=== PATIENT | female | born 1955 | race Caucasian/White ===

== ENCOUNTER 2025-05-28 06:08 | Emergency (ER) | payer MEDICARE, SELFPAY ==
[2025-05-28] VITALS (20 sets, daily range): BP systolic 130–158; BP diastolic 70–93; PULSE 67–86; RESP 14–20; TEMP 36.5; O2SAT 97–100
--- NOTE | ~2025-05-28 | CT_ITS ---
EXAMINATION: CT facial & cervical spine wo DATE: 05/28/2025 10:54 INDICATION: Fall. TECHNIQUE: Computed tomography (CT) of the maxillofacial region and cervical spine was performed without intravenous contrast. Automated exposure control and iterative reconstruction technique were employed. The dose-length product was 227.92 mGy-cm. COMPARISON: None FINDINGS: MAXILLOFACIAL CT: There is rightward deviation of the nasal septum. No fracture. There is mild mucosal thickening in the paranasal sinuses. The orbits are normal. The mastoid air cells are normal. CERVICAL SPINE CT: There is 5 degrees dextrocurvature of cervical spine. Vertebral body heights are normal. There is mildly decreased disc height at C4-C5 and C5-C6 and moderately decreased disc height at C6-C7. There is multilevel severe facet joint osteoarthritis. There is multilevel uncovertebral joint osteoarthritis, severe bilaterally at C6-C7. There is mild neural foraminal stenosis at multiple levels on either side. There is mild central canal stenosis at C4-C5, C5-C6, and C6-C7. IMPRESSION: 1. No fracture. 2. Moderate cervical spondylosis. Reviewed, dictated and finalized at location E.
--- NOTE | ~2025-05-28 | XR_ITS ---
EXAMINATION: XR pelvis 1-2V, 05/28/2025 10:58 CDT HISTORY: fall COMPARISON: No comparisons available. Findings: No acute fracture or malalignment. No significant degenerative changes. Soft tissues unremarkable. Impression: No acute fracture or malalignment. Reviewed, dictated and finalized at location P. Impression: No acute fracture or malalignment.
--- NOTE | ~2025-05-28 | XR_ITS ---
EXAMINATION: XR wrist LT min 3V, 05/28/2025 10:58 CDT HISTORY: injury COMPARISON: No comparisons available. Findings: Fixation of the distal radius, no acute fracture is identified. There is a remote corticated fracture of the ulnar styloid process. No significant degenerative changes. Soft tissues unremarkable. Impression: No acute fracture or malalignment. Reviewed, dictated and finalized at location P. Impression: No acute fracture or malalignment.
--- NOTE | ~2025-05-28 | CT_ITS ---
CT HEAD NON-CONTRAST Clinical History: fall Comparison: None Technique: Unenhanced axial images skull base to vertex Coronal, sagittal reformats CT images acquired with automatic exposure control for dose reduction DLP: 228 mGy-cm Findings: Frontal craniotomy. Heterogeneous rounded parenchyma beneath craniotomy site with faint mural calcification and more prominent focal dystrophic calcification. White matter changes, typically chronic microvascular ischemic disease. Sulci, ventricles: Unremarkable. No intracerebral hemorrhage. No evidence acute territorial infarct. No mass effect, midline shift. Bony calvarium intact. Visualized paranasal sinuses: Clear. Mastoid air cells: Clear. IMPRESSION: 1. No acute intracranial findings. 2. Focal distinct brain parenchyma beneath craniotomy site left frontal lobe. Presumably posttreatment changes of underlying mass. Residual viable malignancy cannot be excluded. Recommend comparison with prior exams if they exist. Otherwise consider MRI. Reviewed, dictated and finalized at location R. IMPRESSION: 1. No acute intracranial findings. 2. Focal distinct brain parenchyma beneath craniotomy site left frontal lobe. Presumably posttreatment changes of underlying mass. Residual viable malignancy cannot be excluded. Recommend comparison with prior exams if they exist. Other vasquez consider MRI.
--- NOTE | ~2025-05-28 | XR_ITS ---
EXAMINATION: XR chest 1V, 05/28/2025 10:58 CDT HISTORY: fall COMPARISON: No comparisons available. Technique: Single view. Findings: The lungs are clear, no effusion. No pneumothorax. Heart is normal size. Mediastinal and hilar contours are within normal limits. There are remote right-sided rib fractures Impression: No acute cardiopulmonary abnormality. Reviewed, dictated and finalized at location P. Impression: No acute cardiopulmonary abnormality.
--- NOTE | 2025-05-28 10:33 | ED.FALL ---
HPI - Fall General Chief Complaint: Fall Stated Complaint: fall Time Seen by Provider: 05/28/25 09:10 Source: patient Mode of arrival: EMS Limitations: other (history of aphasia) History of Present Illness HPI Narrative: This is a 70-year-old female that presents to the emergency department after a reported fall at her facility today. Bruising noted around the right orbit. Abrasions to the left wrist. Patient does not report any pain at this time. History is limited due to her history of aphasia. Related Data Allergies Allergy/AdvReac Type Severity Reaction Status Date / Time No Known Allergies Allergy Verified 05/28/25 06:16 Review of Systems Review of Systems: ROS unobtainable: Yes unobtainable due to medical condition PMFSH Past Medical History Medical History (Updated 05/28/25 @ 13:11 by Malathi Day PA-C) Glioblastoma Expressive aphasia Hypertension Brain mass Exam Narrative: GENERAL: Well-appearing, well-nourished, and in no acute distress. HEAD: Normocephalic. Bruising to the right side of the face EYES: PERRLA and EOMI. ENT: Nares clear, no rhinorrhea or epistaxis. Mucous membranes moist. Oropharynx without tonsillar hypertrophy exudate or other lesions. Bilateral TMs pearly jarvis non-bulging NECK: Supple. No adenopathy or masses. CHEST: Clear to auscultation. No respiratory distress. No wheezes rales or rhonchi HEART: Regular rate and rhythm. No murmur heard. Normal peripheral pulses. ABDOMEN: Soft, nontender, nondistended, normal active bowel sounds. EXTREMITIES: Normal range of motion. No edema or obvious deformity. SKIN: Warm, dry, no rash. NEURO: No focal deficits. Alert and oriented x3. CN II-XII grossly intact PSYCH: Normal mood and affect Course Course Emergency Course: patient's son was updated on imaging results. He reports some worsening confusion the last week. Will obtain blood work, UA Vital Signs Vital signs: Vital Signs Temperature 97.7 F 05/28/25 06:11 Pulse Rate 75 05/28/25 06:11 Respiratory Rate 20 05/28/25 06:11 Blood Pressure 143/78 H 05/28/25 06:11 Pulse Oximetry 97 05/28/25 06:11 Oxygen Delivery Room Air 05/28/25 06:11 Temperature 97.7 F 05/28/25 06:11 Pulse Rate 73 05/28/25 13:00 Respiratory Rate 18 05/28/25 13:00 Blood Pressure 142/73 H 05/28/25 13:00 Pulse Oximetry 97 05/28/25 13:00 Oxygen Delivery Room Air 05/28/25 06:11 MDM - Fall MDM Narrative Medical decision making narrative: Patient presents to the ER for a fall today at assisted living facility. Bruising noted to the right side of the face. No injuries reported by patient. CT brain shows postoperative findings. No acute intracranial findings. CT cervical spine and facial bones without acute post-traumatic findings. Chest and pelvic x-rays without acute findings. Abrasions noted to the left wrist. Left wrist x-ray without acute osseous abnormalities. CBC with mild leukocytosis 10.9. Metabolic panel with mild hyponatremia. Urine with evidence of infection. Patient given 1st dose of antibiotics in the ER. Will be continued on oral antibiotics. She is to follow up with primary provider. She was given warnings to return to the ER Differential Diagnosis Differential diagnosis: Likely concussion with loss of consciousness, concussion without loss of consciousness and other (facial bone fracture, cervical spine fracture, contusion, UTI, subdural hemorrhage) Medical Records Attestation: I reviewed the patient's medical records. Medical records narrative: Follows regularly with neurology-oncology at [facility] Lab Data Attestation: I reviewed the patient's lab results. 05/28/25 12:35 05/28/25 12:35 Labs: Lab Results 05/28/25 05/28/25 Range/Units 12:25 12:35 WBC 10.9 H (4.5-10.0) K/mm3 RBC 4.65 (4.2-5.4) M/mm3 Hgb 14.5 (12.0-15.0) g/dL Hct 44.1 (37.0-47.0) % MCV 94.8 (80-100) fl MCH 31.2 (26-34) pg MCHC 32.9 (32-36) g/dl RDW 13.8 (11.5-14.5) % Plt Count 252 (150-375) k/mm3 MPV 9.0 (7.4-10.4) fl Immature Gran % (Auto) 0.7 H (0-0.5) % Neut % (Auto) 77.8 H (45.5-73.1) % Lymph % (Auto) 12.0 L (18.3-44.2) % Tyler % (Auto) 7.9 (2.6-8.5) % Eos % (Auto) 1.3 (0-4.4) % Baso % (Auto) 0.3 (0.2-1.2) % Lymph # (Auto) 1.31 (0.9-3.2) K/mm3 Tyler # (Auto) 0.9 H (0.1-0.6) K/mm3 Eos # (Auto) 0.1 (0-0.3) K/mm3 Baso # (Auto) 0.0 (0.0-0.1) K/mm3 Abs Immat Gran (auto) 0.08 H (0.00-0.031) K/mm3 Absolute Neuts (auto) 8.5 H (1.3-6.7) K/mm3 Absolute Nucleated RBC 0.000 (0.0-0.012) K/mm3 Nucleated RBC % 0.0 (0.0-0.2) % Sodium 133 L (137-145) mmol/L Potassium 3.6 (3.4-5.0) mmol/L Chloride 101 (98-107) mmol/L Carbon Dioxide 29 (22-30) mmol/L Anion Gap 3 L (4-12) mmol/L BUN 13 (7-17) mg/dL Creatinine 0.63 L (0.7-1.0) mg/dL Estim Creat Clear Calc Not Reportable Estimated GFR > 60 (59 - ) Glucose 91 (65-110) mg/dL Calcium 8.3 L (8.4-10.2) mg/dL Total Bilirubin 0.6 (0.2-1.3) mg/dL AST 31 (14-36) U/L ALT 32 (6-35) U/L Alkaline Phosphatase 105 (38-126) U/L Total Protein 6.2 L (6.3-8.2) g/dL Albumin 3.4 L (3.5-5.1) g/dL Urine Color Yellow (Yellow) Urine Appearance Clear (Clear) Urine pH 7.0 (5.0-9.0) Ur Specific Baldwin 1.011 (1.001-1.035) Urine Protein Negative (Negative) mg/dL Urine Glucose (UA) Negative (Negative) mg/dL Urine Ketones Negative (Negative) mg/dL Ur Blood (Man) Negative (Negative) Urine Nitrate Negative (Negative) Urine Bilirubin Negative (Negative) Urine Urobilinogen 1.0 (<2.0) mg/dL Leukocyte Esterase Rfl 2+ H (Negative) BRITTANIE/UL Urine RBC 0-2 (0-2) /hpf Urine WBC 11-20 H (0-3) /hpf Ur Squamous Epith Cells Occasional (Few) /hpf Urine Bacteria 1+ H /hpf Urine Casts 0-2 Imaging Data Radiologist's impression: ITS Impressions Head/Cervical Spine/Facial Bones CT 05/28/25 10:56 IMPRESSION: 1. No fracture. 2. Moderate cervical spondylosis. Head CT 05/28/25 10:57 IMPRESSION: 1. No acute intracranial findings. 2. Focal distinct brain parenchyma beneath craniotomy site left frontal lobe. Presumably posttreatment changes of underlying mass. Residual viable malignancy cannot be excluded. Recommend comparison with prior exams if they exist. Otherwise consider MRI. Chest X-Ray 05/28/25 11:08 Impression: No acute cardiopulmonary abnormality. Pelvis X-Ray 05/28/25 11:09 Impression: No acute fracture or malalignment. Wrist X-Ray 05/28/25 11:09 Impression: No acute fracture or malalignment. Critical Care Time Critical Care Time Critical Care Time: No Discharge Plan Discharge Clinical Impression: Acute UTI Fall Qualifiers: Encounter type: initial encounter Qualified Code(s): W19.XXXA - Unspecified fall, initial encounter Head injury Qualifiers: Encounter type: initial encounter Qualified Code(s): S09.90XA - Unspecified injury of head, initial encounter Patient Disposition: [facility] Condition: Stable Instructions: Antibiotic Form, Head Injury (ED), Urinary Tract Infection in Older Adults (ED) Additional Instructions: Return to the emergency department if you experience fever, chest pain, shortness of breath, abdominal pain with nausea and vomiting, weakness, numbness, or any other symptoms that are concerning to you. Take oral antibiotic as prescribed Follow up with primary care doctor Patient Language: Andorran Prescriptions: New cephalexin 500 mg capsule 500 mg PO Q12H 5 Days Qty: 10 0RF Follow-up/Referrals: Faith,Jodi [Other] Stand Alone Forms: Snf Discharge
--- OUTSIDE RECORDS SUMMARY | 2025-05-28 10:47 | XMS_ITS ---
Author Organization [facility] Healthcare Address [address] [place] [address] Care Team Providers Care [employer] Principal Solution Specialist Name Role Phone Mylene Ervin Unavailable [phone] Kervin Gonsales MD Unavailable Lyle Renner MD Unavailable [phone] Ashley Sullivan MD Unavailable Kervin Gonsales MD Unavailable Beatrice Tesfaye FLASK FITTER Primary Care Provider [phone] Marvin Gonzales MD PhD Unavailable Active Problems Problem Noted Date Diagnosed Date Brain lesion 02/07/2025 Glioblastoma 01/11/2025 Cancer Staging:Clinical stage from 07/22/2017:WHO G4- Signed by Afua Hernández MD on 01/30/2025 Hypercalciuria 08/01/2024 Assessment & Plan (08/01/2024 4:12 PM BARBER OR BEAUTY SHOP MANAGER): See HPI for details, HCTZ was stopped by PCP due to constipation. But pt states this was a longstanding issue and there was no change on or off of it. She did not have any lightheadedness, low BP with it. Told her to restart HCTZ 12.5 mg, if needed for BP cut her amlodipine in 12 and let us know. Language difficulty 07/03/2024 Memory loss or impairment 07/03/2024 Seizure-like activity 06/04/2024 Other osteoporosis without current pathological fracture 09/14/2023 Assessment & Plan (08/01/2024 4:13 PM BARBER OR BEAUTY SHOP MANAGER): Chronic problem, generally stable. Prolia was too expensive. Continue Boniva. Restart calcium supplement. Reviewed fall risk reduction, she's in PT right now for balance/ strength training. Also discussed a walking aide if needed. Assessment & Plan (09/14/2023 10:54 AM BARBER OR BEAUTY SHOP MANAGER): Without clear secondary causes, but with strong genetic component. Will proceed some laboratory workup including 25 hydroxy vitamin-D, PTH, serum calcium and urine calcium The patient unfortunately has contraindication for anabolic therapy with PTH due to his history of radiation therapy exposure. I discussed different options of treatment, including bisphosphonates or oral or IV or also denosumab (Prolia), which would be my recommendation. The patient has agreed. I have sent a prescription for denosumab If approved, Boniva be discontinued continue with denosumab every 6 months . I explained to the patient that she starts denosumab , she needs to be compliant taking the medication regularly because of the increased risk of rebound fractures if the medication is stop abruptly Importance of weight-bearing exercise fall precautions also was discussed as well as calcium and vitamin-D intake. Expressive aphasia 02/21/2021 Urinary incontinence 05/27/2020 Recurrent UTI 05/27/2020 Microscopic hematuria 05/27/2020 Closed fracture of right distal radius 9 Overview (08/21/2018): Added automatically from request for surgery [id number] Closed fracture of left distal radius 08/21/2018 Overview (08/21/2018): Added automatically from request for surgery [id number] Sensorineural hearing loss (SNHL) of both ears 0 03/06/2018 Left frontal glioblastoma mu ltiforme, EGFR amplified, 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 12/21/2017 Drug-induced constipation 11/17/2017 Nonintractable episodic headache 11/17/2017 Encounter for chemotherapy management 08/24/2017 Tinnitus 08/19/2017 Skin neoplasm 05/18/2017 Hemangioma of skin 05/18/2017 Keratosis, senilis 05/18/2017 TIA (transient ischemic attack) Current Treatment and Therapy Plans [id number] ??? [facility] ??? Neuro - [id number] ??? Arm A ??? 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) Treatment Medications Current Day (Day 1 , Cycle 3 - Planned for 05/16/2025) Next Day (Day 15, Cycle 3 - Planned for 05/30/2025) bevacizumab-awwb (MVASI)bevacizumab-awwb (MVASI) IVPBINV-WUSM_BJH (/[id number]) retifanlimab ([id number]) IVPB in 100 mLINV-WUSM_BJ sodium chloride 0.9 % bevacizumab-awwb (MVASI) 575 mg in sodium chloride 0.9% 100 mL IVPBINV-WUSM_BJH retifanlimab ([id number]) (/[id number]) 500 mg in sodium chloride 0.9% 100 mL IVPBINV-WUSM_BJ sodium chloride 0.9 % flush IVPB 20 mL bevacizumab-awwb (MVASI) 575 mg in sodium chloride 0.9% 100 mL IVPB IV MAINTENANCE THERAPY PLAN* Plan Start Date:02/09/2018 Plan Provider:Kervin Gonsales MD Linked Problems 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 IV Maintenance Therapy Plan* Plan Start Date:04/04/2025 Plan Provider:Kervin Gonsales MD Linked Problems Glioblastoma (HCC) Treatment Medications No medications scheduled. Past Treatment and Therapy Plans Oncology Chemotherapy Treatment Plan Name Start Date Discontinue Date Treatment Medications Discontinue Reason Plan Provider Cycles [id number] - [facility] - Brain - [id number] - Nivolumab / Placebo + RT followed by Nivolumab / Placebo Maintenance 8 09/04/2020 [facility] (/ [id number]) nivolumab IVPB in 100 mL Therapy Complete Kervin Gonsales MD 42 of 44 cycles started Oncology Treatment (2) Plan Name Start Date Discontinue Date Treatment Medications Discontinue Reason Plan Provider Cycles [id number] - [facility] Brain - [id number] - Temozolomide + RT followed by Temozolomide Maintenance 8 06/08/2018 [facility] temozolomide (/C [id number]) Patient Preference Kervin Gonsales MD 7 of 11 cycles completed Current Radiation Episodes * Radiation Oncology - Radiation Therapy - December 2024Overview* First Treatment Date Latest Treatment Date Treatment Site Technique Goal Episode Provider 08/25/2017 04/03/2025 Treatment Courses* Course C2_Brain_202403/21/2025 - 04/03/2025 Treatment Period Fraction Dose Fractions Total Dose Plans Planned LT_BRAIN 03/21/2025 - 04/03/2025 350 10 / 3 ,500 Reference Points Delivered [id number] 03/21/2025 - 04/03/2025 3,500 * Course C1_BRAIN_201608/25/2017 - 03/12/2025 Treatment Period Fraction Dose Fractions Total Dose Plans Planned BRAIN 03/12/2025 - 03/12/2025 200 23 / 4 ,600 BRAIN BST 03/12/2025 - 03/12/2025 200 7 / 1 ,400 Reference Points Delivered PTV1 4600 03/12/2025 - 03/12/2025 4,600 PTV2 1400 03/12/2025 - 03/12/2025 1,400 Radiation Treatments (No Episode) * Course C1_BRAIN_201608/26/2017 - 10/05/2017 Treatment Period Energy Fraction Dose Fractions Total Dose Plans Planned BRAIN BST 09/27/2017 - 10/05/2017 200 7 / 1,400 BRAIN 08/26/2017 - 09/26/2017 200 23 / 4,600 Reference Points Delivered PTV2 1400 09/27/2017 - 10/05/2017 1,400 PTV1 4600 08/26/2017 - 09/26/2017 4,600 Lifetime Dose Tracking * Chemical Lifetime Dose Automatic Entry Manual Entr y Fluoro Time 3.4 minutes 3.4 minutes 0 minutes Air kerma at the reference point (Ka,r) 26.1 mGy 2 6.1 mGy 0 mGy DLP 2,622 mGycm 2,622 mGycm 0 mGycm
--- OUTSIDE RECORDS SUMMARY | 2025-05-28 10:47 | XMS_ITS | Clinical Summary ---
Author Organization [facility] Healthcare Address [address] [place] [address] Care Team Providers Care Engineering Analyst Name Role Phone Mylene Ervin Unavailable [phone] Kervin Gonsales MD Unavailable Lyle Renner MD Unavailable [phone] Ashley Sullivan MD Unavailable Kervin Gonsales MD Unavailable Beatrice Tesfaye NP Primary Care Provider [phone] Marvin Gonzales MD PhD Unavailable Allergies Active Allergy Reactions Criticality Noted Date Comments Amoxicillin Nausea only Low 03/07/2025 Codeine Hallucinations Medium Erythromycin Nausea only Low 02/21/2021 Hydrocodone Vomiting Low Latex Cough Low Medications valACYclovir (VALTREX) 500 mg tablet Take 1 tablet (500 mg total) by mouth every morning Active ascorbic acid (VITAMIN C) 1,000 mg tablet Take 1 tablet (1,000 mg total) by mouth every morning Active fluticasone (FLONASE) 50 mcg/actuation nasal spray Administer 1 spray into each nostril as needed for rhinitis or allergies Active amLODIPine (NORVASC) 5 mg tablet Take 1 tablet (5 mg total) by mouth every morning 0 Active magnesium oxide (MAG-OX) 500 mg (301.6 mg elemental) tablet Take by mouth daily 2 Active zinc gluconate 50 mg tablet Take 1 tablet (50 mg total) by mouth every morning 2 Active ibandronate (BONIVA) 150 mg tablet Take 1 tablet (150 mg total) by mouth every 30 (thirty) days Take in AM with glass of water prior to food, don't lie down for 30 minutes. 3 tablet 1 4 Active ciclopirox (LOPROX) 0.77 % suspension Apply topically nightly Active vitamin D3-vitamin K2 25 mcg (1,000 unit)-90 mcg tablet,disinteg rating Take by mouth every morning Active acetaminophen 500 mg capsuleIndicati ons:Pain Take 2 capsules (1,000 mg total) by mouth every 6 (six) hours as needed for pain . Do not exceed 4 grams daily. 5 Active docusate sodium (COLACE) 100 mg capsuleIndicati ons:constipatio n,Stool Softener Take 1 capsule (100 mg total) by mouth 2 (two) times a day 5 Active famotidine (PEPCID) 20 mg tabletIndicatio ns:mucositis prophylaxis Take 1 tablet (20 mg total) by mouth 2 (two) times a day for 7 days 5 Active heparin 5,000 unit/mL injectionIndica tions:VTE Prophylaxis Inject 1 mL (5,000 Units total) under the skin every 12 (twelve) hours . Heparin can be discontinued once the patient is ambulating well. 5 Active oxyCODONE (ROXICODONE) 5 mg immediate release tabletIndicatio ns:Pain Take 1 tablet (5 mg total) by mouth every 4 (four) hours as needed for pain 5 Active polyethylene glycol (MIRALAX) 17 gram packetIndicatio ns:constipation Take 1 packet (17 g total) by mouth daily as needed for constipation 5 Active senna (SENOKOT) 8.6 mg tabletIndicatio ns:constipation Take 1 tablet by mouth 2 (two) times a day 5 026 Active zonisamide (ZONEGRAN) 50 mg capsuleIndicati ons:Primary malignant neoplasm of frontal lobe (HCC) Take 1 capsule (50 mg total) by mouth 2 (two) times a day after breakfast and dinner 180 capsule 3 5 Active dexAMETHasone (DECADRON) 4 mg tabletIndicatio ns:Cerebral Edema Take 2 tablets (8 mg total) by mouth daily with breakfast for 1 day, THEN 1 tablet (4 mg total) 2 (two) times a day with breakfast and lunch for 27 days. 56 tablet 5 025 ciprofloxacin (CIPRO) 500 mg tabletIndicatio ns:Urinary Tract/Genitouri nary Infection Take 1 tablet (500 mg total) by mouth 2 (two) times a day for 7 days 14 tablet 5 025 Active Problems Problem Noted Date Diagnosed Date Brain lesion 02/07/2025 Glioblastoma 01/11/2025 Cancer Staging:Clinical stage from 07/22/2017:WHO G4- Signed by Afua Hernández MD on 01/30/2025 Hypercalciuria 08/01/2024 Assessment & Plan (08/01/2024 4:12 PM STATISTICIAN THEORETICAL): See HPI for details, HCTZ was stopped by PCP due to constipation. But pt states this was a longstanding issue and there was no change on or off of it. She did not have any lightheadedness, low BP with it. Told her to restart HCTZ 12.5 mg, if needed for BP cut her amlodipine in 08/16 and let us know. Language difficulty 07/03/2024 Memory loss or impairment 07/03/2024 Seizure-like activity 06/04/2024 Other osteoporosis without current pathological fracture 09/14/2023 Assessment & Plan (08/01/2024 4:13 PM STATISTICIAN THEORETICAL): Chronic problem, generally stable. Prolia was too expensive. Continue Boniva. Restart calcium supplement. Reviewed fall risk reduction, she's in PT right now for balance/ strength training. Also discussed a walking aide if needed. Assessment & Plan (09/14/2023 10:54 AM STATISTICIAN THEORETICAL): Without clear secondary causes, but with strong [...] (08/21/2018): Added automatically from request for surgery [id number] Closed fracture of left distal radius 08/21/2018 Overview (08/21/2018): Added automatically from request for surgery [id number] Sensorineural hearing loss (SNHL) of both ears 0 03/06/2018 Left frontal glioblastoma mu ltiforme, EGFR amplified, 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 12/21/2017 Drug-induced constipation 11/17/2017 Nonintractable episodic headache 11/17/2017 Encounter for chemotherapy management 08/24/2017 Tinnitus 08/19/2017 Skin neoplasm 05/18/2017 Hemangioma of skin 05/18/2017 Keratosis, senilis 05/18/2017 TIA (transient ischemic attack) Encounters Date Type Department Care Team Description 05/24/2025 Documentation [facility] Neuroscience Nurse Navigation [address] [place] [address] Mayuri Rose, ORESTES End Of Episode (Conclude [facility] Nurse Navigation services); No Call Made 05/20/2025 Orders Only [facility] Medicine Oncology [address] [facility] Floor 5 [place] [address] Jameson Pierre, ORESTES Primary malignant neoplasm of frontal lobe (HCC) (Primary Dx) 05/17/2025 Orders Only [facility] Oncology [address] [facility] Floor 1, [address] [place] [address] Betsy Diego RN 05/14/2025 Telephone [facility] Bone Health [facility] 13th [place] [address] [place] [address] Santosh Paul MD 05/02/2025 2:45 PM CDT Lab [facility] - Lab Collection [address] [facility] Floor 5 [place] [address] Left frontal glioblastoma multiforme, EGFR amplified, 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 05/02/2025 1:20 PM CDT Office Visit [facility] Oncology [address] [place] [address] Floor 1, [address] [place] [id number] Kervin Gonsales MD Left frontal glioblastoma multiforme, EGFR amplified, 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 (Primary Dx); Dysuria; Primary malignant neoplasm of frontal lobe (HCC) 05/02/2025 Orders Only [facility] Oncology [facility] Floor 1, [address] [place] [address] Betsy Diego RN 04/30/2025 4:00 PM CDT Telemedicine [facility] Neurosurgery [facility] Floor 1, [address] [place] [phone] Fabricio Alvarez MD Glioblastoma (HCC) (Primary Dx) 04/30/2025 2:00 PM CDT Telemedicine [facility] Radiation Oncology [address] [place] [address] [place] [address] Tresa Clark NP Left frontal glioblastoma multiforme, EGFR amplified, 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 (Primary Dx) 04/29/2025 4:17 PM CDT - 04/29/2025 11:59 PM CDT Hospital Encounter [facility] - MRI [address] [facility] [address] [place] [address] Primary malignant neoplasm of frontal lobe (HCC) Discharge Disposition: Discharge to home or self care 04/18/2025 2:00 PM CDT Infusion [facility] - Infusion [address] 6 [place] [address] Glioblastoma (HCC) (Primary Dx); Left frontal glioblastoma multiforme, EGFR amplified, 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; Primary malignant neoplasm of frontal lobe (HCC) 04/18/2025 1:00 PM CDT Lab [facility] - Lab Collection [address] [facility] [address] [place] [address] Left frontal glioblastoma multiforme, EGFR amplified, 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; Glioblastoma (HCC) 04/08/2025 Results Follow-Up [facility] [place] [address] [place] [address] [address] [place] [phone] Rachael Esquivel, EDSON Urine culture Urine, clean voided 04/06/2025 5:30 PM CDT - 04/06/2025 11:59 PM CDT Hospital [facility] [address] [place] [address] Urinary frequency Discharge Disposition: Discharge to home or self care 04/06/2025 2:15 PM CDT Office Visit [facility] [address] [place] [address] [address] [place] [phone] Bri Randle, EDSON Urinary frequency (Primary Dx) 04/06/2025 Telephone [facility] Medicine Oncology [address] [place] [phone] Criss Dubois RN 04/04/2025 3:30 PM CDT Infusion [facility] - Infusion [address] [facility] [address] 6 [place] [address] Glioblastoma (HCC) (Primary Dx); Left frontal glioblastoma multiforme, EGFR amplified, 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; Primary malignant neoplasm of frontal lobe (HCC) 04/04/2025 2:20 PM CDT Office Visit [facility] Medicine Oncology [address] [place] [address] Floor 1, [address] [place] [address] Kervin Gonsales MD Left frontal glioblastoma multiforme, EGFR amplified, 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 (Primary Dx) 04/04/2025 1:15 PM CDT Lab [facility] Medicine Oncology Lab [address] [facility] Floor 5 [place] [address] Left frontal glioblastoma multiforme, EGFR amplified, 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 04/04/2025 12:45 PM CDT Lab [facility] - Lab Collection [address] [facility] Floor 5 [place] [address] Left frontal glioblastoma multiforme, EGFR amplified, 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 04/03/2025 12:12 PM CDT - 04/03/2025 11:59 PM CDT Hospital Encounter [facility] [address] [place] [phone] Marvin Gonzales MD PhD Glioblastoma (HCC) Discharge Disposition: Discharge to home or self care 04/03/2025 11:40 AM CDT - 04/03/2025 11:59 PM CDT Hospital Encounter [facility] Radiation Oncology [address] [place] [address] [place] [address] Marvin Gonzales MD PhD Discharge Disposition: Discharge to home or self care 04/03/2025 Completion of Therapy [facility] Radiation Oncology [facility] [place] [phone] Tresa Clark NP Left frontal glioblastoma multiforme, EGFR amplified, 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 (Primary Dx) 04/03/2025 Orders Only RAD ONC TREATMENTS Miscellaneous, Not In File 04/02/2025 11:16 AM CDT - 04/02/2025 11:59 PM CDT Hospital Encounter [facility] Radiation Oncology [address] [place] [address] Marvin Gonzales MD PhD Discharge Disposition: Discharge to home or self care 04/02/2025 Telephone [facility] Radiation Oncology [address] [place] [address], [place] [address] Betsy Rodriguez, RN 04/02/2025 Orders Only [facility] Radiation Oncology [address] [place] [address] Marvin Gonzales MD PhD Glioblastoma (HCC) (Primary Dx) 04/02/2025 OTV [facility] Radiation Oncology [address] [place] [address] Marvin Gonzales MD PhD 04/02/2025 Orders Only RAD ONC TREATMENTS Miscellaneous, Not In File 04/01/2025 2:29 PM CDT - 04/01/2025 11:59 PM CDT Hospital Encounter [facility] Radiation Oncology [address] [place] [address] Marvin Gonzales MD PhD Discharge Disposition: Discharge to home or self care 04/01/2025 Orders Only RAD ONC TREATMENTS Miscellaneous, Not In File 03/29/2025 1:58 PM CDT - 03/29/2025 11:59 PM CDT Hospital Encounter [facility] Radiation Oncology [address] [place] [address] Marvin Gonzales MD PhD Discharge Disposition: Discharge to home or self care 03/29/2025 Orders Only RAD ONC TREATMENTS Miscellaneous, Not In File 03/28/2025 9:08 AM CDT - 03/28/2025 11:59 PM CDT Hospital Encounter [facility] Radiation Oncology [address] [place] [address] Marvin Gonzales MD PhD Discharge Disposition: Discharge to home or self care 03/28/2025 Orders Only RAD ONC TREATMENTS Miscellaneous, Not In File 03/27/2025 1:49 PM CDT - 03/27/2025 11:59 PM CDT Hospital Encounter [facility] Radiation Oncology [address] [place] [address] [place] [address] Marvin Gonzales MD PhD Discharge Disposition: Discharge to home or self care 03/27/2025 Orders Only RAD ONC TREATMENTS Miscellaneous, Not In File 03/26/2025 8:45 AM CDT Treatment [facility] Radiation Oncology [address] [place] [phone] 03/26/2025 Orders Only RAD ONC TREATMENTS Miscellaneous, Not In File 03/25/2025 11:15 AM CDT Treatment [facility] Radiation Oncology [address] [place] [phone] 03/25/2025 OTV [facility] Radiation Oncology [address] [place] [phone] Marvin Gonzales MD PhD Left frontal glioblastoma multiforme, EGFR amplified, 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 (Primary Dx) 03/25/2025 Orders Only [facility] Radiation Oncology [address] [place] [phone] Marvin Gonzales MD PhD 03/25/2025 Orders Only RAD ONC TREATMENTS Miscellaneous, Not In File 03/22/2025 9:45 AM CDT Treatment [facility] Radiation Oncology [address] [place] [phone] 03/22/2025 Orders Only RAD ONC TREATMENTS Miscellaneous, Not In File 03/21/2025 1:45 PM CDT Treatment [facility] Radiation Oncology [address] [place] [phone] Marvin Gonzales MD PhD 03/21/2025 8:00 AM CDT Infusion [facility] - Infusion [address] [facility] Floor 5 [place] [address] Left frontal glioblastoma multiforme, EGFR amplified, 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 (Primary Dx); Primary malignant neoplasm of frontal lobe (HCC) 03/21/2025 7:15 AM CDT Clinical Support [facility] - Lab Collection [address] [place] [address] Left frontal glioblastoma multiforme, EGFR amplified, 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 03/21/2025 Orders Only RAD ONC TREATMENTS Miscellaneous, Not In File 03/21/2025 Telephone [facility] Radiation Oncology [address] [place] [address] Rachael Osei RN 03/15/2025 Orders Only [facility] Medicine Oncology [address] [facility] Floor 1, [address] [place] [address] Kervin Gonsales MD 03/12/2025 2:00 PM CDT Office Visit [facility] Neurosurgery [address] [facility] Floor 1, [address] [place] [phone] Fabricio Alvarez MD Glioblastoma (HCC) (Primary Dx) 03/12/2025 Orders Only RAD ONC TREATMENTS Miscellaneous, Not In File 03/11/2025 3:30 PM CDT Treatment [facility] Radiation Oncology [address] [place] [address] 03/07/2025 4:00 PM CDT Infusion [facility] - Infusion [address] [place] [address] Left frontal glioblastoma multiforme, EGFR amplified, 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 (Primary Dx); Primary malignant neoplasm of frontal lobe (HCC) 03/07/2025 2:40 PM CDT Office Visit [facility] Oncology [facility] [facility] Floor 1, [address] [place] [phone] Kervin Gonsales MD Left frontal glioblastoma multiforme, EGFR amplified, 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 (Primary Dx); Primary malignant neoplasm of frontal lobe (HCC) 03/07/2025 1:30 PM CDT Lab [facility] - Lab Collection [address] [place] [address] Left frontal glioblastoma multiforme, EGFR amplified, 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 03/07/2025 Orders Only [facility] Medicine Oncology [address] [facility] Floor 1, [address] [place] [address] Betsy Diego, ORESTES 03/07/2025 Orders Only [facility] Oncology [facility] Floor 1, [address] [place] [address] Betsy Diego RN 03/07/2025 [facility] [address] [facility] Floor 1, [address] [place] [address] Betsy Diego RN 03/07/2025 [facility] [address] [place] [address] Floor 1, [address] [place] [phone] Kervin Gonsales MD 03/04/2025 1:41 PM CDT - 03/04/2025 11:59 PM CDT Hospital Encounter [facility] Radiation Oncology [address] [place] [address] [place] [address] Marvin Gonzales MD PhD Discharge Disposition: Discharge to home or self care 03/04/2025 12:43 PM CDT - 03/04/2025 11:59 PM CDT Hospital Encounter [facility] Radiation Oncology [address] [place] [address] Marvin Gonzales MD PhD Discharge Disposition: Discharge to home or self care 03/01/2025 [facility] [address] [place] [address] Floor 1, [address] [place] [phone] Betsy Diego, ORESTES 02/28/2025 12:45 PM CDT Lab [facility] - Lab Collection [address] [place] [address] Floor 5 [place] [address] Glioblastoma (HCC) 02/28/2025 12:30 PM CDT Lab [facility] Medicine Oncology Lab [address] [place] [address] Floor 5 [place] [address] Glioblastoma (HCC) 02/28/2025 10:00 AM CDT Office Visit [facility] Medicine Oncology [facility] Floor 1, [address] [place] [address] Noé Sarmiento MD PhD Left frontal glioblastoma multiforme, EGFR amplified, 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 (Primary Dx) 02/28/2025 Orders Only [facility] Medicine Oncology [address] [facility] [address] 1, [address] [place] [address] Romeo Sanchez, SAM Glioblastoma (HCC) (Primary Dx) 02/28/2025 Telephone [facility] Radiation Oncology [address] [facility] [place] [address] Betsy Rodriguez RN 02/25/2025 5:35 AM CDT - 02/25/2025 11:59 PM CDT Hospital Encounter [facility] Radiation Oncology [address] [place] [address] Discharge Disposition: Discharge to home or self care from Last 3 Months Immunizations Immunization Administration Dates Next Due Influenza Virus Vaccine Trivalent Mdv 08/13/2024 Influenza, Quadrivalent, Cira l Culture-based MDCK, Preservative Free, Antibiotic Free, Intramuscular 05/26/2023,05/27/2022 Influenza, Quadrivalent, Split, Intramuscular ,06/19/2016 Influenza, Trivalent, Preservative Free, Intramu scular 04/15/2017 Influenza, Unspecified 09/27/2023,05/15/2017 Moderna SARS-CoV-2 Monovalent Vaccination (12+ Y RS) 11/21/2020,10/24/2020 Pneumococcal Conjugate Pcv20 04/05/2022 Tdap 04/02/2014,08/15/2002 Tetanus Toxoid, Unspecified 02/12/2015 ZOSTER Recombinant 12/11/2022,08/26/2022 Surgical History Surgery Date Site/Laterality Comments TUBAL LIGATION Bilateral tubal ligation TONSILLECTOMY Tonsillectomy CYST REMOVAL Uterine cyst CRANIOTOMY FOR TUMOR 07/15/2017 - 08/14/2017 Glioblastoma Medical History Medical History Date Comments Personal history of other sp ecified conditions History of headache - (Added by TW Conv) HL (hearing loss) Tinnitus H/O seasonal allergies Cancer (HCC) Acid reflux disease Motion sickness Brain tumor 07/2017 Left frontal gli oblastoma Hypertension Glioblastoma (HCC) Herpes genitalis in women History of chemotherapy History of radiation therapy Left frontal glioblastoma mu ltiforme, EGFR amplified, 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 12/21/2017 Family History Medical History Relation Name Comments Alzheimer's disease Father Dementia Father Heart disease Father Breast cancer Half-Sister Deafness Mother Dementia Mother Heart disease Mother Heart attack Other Family history of Myocardial infarction; Relation Name Status Comments Father Half-Sister Alive Mother Alive Other Sister Alive Social History Tobacco Use Types Packs/Day Years Used Date Smoking Tobacco: Former Cigarettes Q uit: 08/21/2013 Passive Smoke Exposure: Past Smokeless Tobacco: Never Tobacco Cessation:Counseling Given: Not Answered Alcohol Use Standard Drinks/Week Comments Not Currently 0 (1 standard drink = 0.6 oz pur e alcohol) [facility] [employer] Answer Date Recorded In the past 12 months has e electric, gas, oil, or water company threatened to shut off services in your home? No 05/08/2024 Social Connection and Isolation Panel Answer Date Recorded In a typical week, how many times do you talk on the phone with family, friends, or neighbors? More than three times a week 05/08/2024 How often do you get togethe r with friends or relatives? Never 05/08/2024 How often do you attend chur ch or roman catholic services? More than 4 times per year 05/08/2024 Do you belong to any clubs o r organizations such as episcopal groups, unions, fraternal or athletic groups, or school groups? Yes 05/08/2024 How often do you attend meet ings of the clubs or organizations you belong to? More than 4 times per year 05/08/2024 Are you , , di vorced, , never , or living with a partner? Patient declined 05/08/2024 AUDIT-C Answer Date Recorded Q1: How often do you have a drink containing alcohol? Never 02/07/2025 Q2: How many drinks containi ng alcohol do you have on a typical day when you are drinking? Patient does not drink Q3: How often do you have si x or more drinks on one occasion? Never 02/07/2025 Overall Financial Resource Strain (CARDIA) Answe r Date Recorded How hard is it for you to pa y for the very basics like food, housing, medical care, and heating? Not very hard 05/08/2024 PHQ-2 Answer Date Recorded PHQ-2 Total Score (If total score is 3 or more points, staff should administer the PHQ-9) 0 02/07/2025 Hunger Vital Sign Answer Date Recorded Within the past 12 months, y ou worried that your food would run out before you got the money to buy more. Never true 05/08/20 24 Within the past 12 months, t he food you bought just didn't last and you didn't have money to get more. Never true 05/08/2024 PRAPARE - Transportation Answer Date Re corded In the past 12 months, has l ack of transportation kept you from medical appointments or from getting medications? No 04/16 In the past 12 months, has l ack of transportation kept you from meetings, work, or from getting things needed for daily living? No 05/08/2024 Housing Stability Vital Sign Answer Marino e Recorded In the last 12 months, was t here a time when you were not able to pay the mortgage or rent on time? No 05/08/2024 In the past 12 months, how m any times have you moved where you were living? 0 05/08/2024 At any time in the past 12 m [facility], were you homeless or living in a halfway (including now)? No 05/08/2024 Personal Safety Answer Date Recorded Have you ever been in or are you currently in a harmful physical or emotional relationship or is someone making you feel afraid or unsafe? Denies 02/07/2025 Comments No Sex and Gender Information Value Date Recorded Sex Assigned at Not on file Legal Sex Female 7:36 PM STATISTICIAN THEORETICAL Gender Identity Not on file Sexual Orientation Straight 07/01/2020 9: 31 AM STATISTICIAN THEORETICAL Obstetrics History Para Term AB IAB SAB Ectopic Multiple Livin g Live Births 3 3 3 Date Outcome GA Total Labor Labor/2nd/3rd Weight Sex Type Anes PTL Mary A1 A5 Name Clin Term Term Term Last Filed Vital Signs Vital Sign Reading Time Taken Comments Blood Pressure 145/85 05/02/2025 1:26 PM CDT Pulse 89 05/02/2025 1:26 PM CDT Temperature 37 C (98.6 F) 05/02/2025 1:26 PM CDT Respiratory Rate 17 05/02/2025 1:26 PM CDT Oxygen Saturation 96% 05/02/2025 1:26 PM CDT Inhaled Oxygen Concentration - - Weight 57.2 kg (126 lb) 05/02/2025 1:26 PM CDT Height 154.9 cm (5' 1) 05/02/2025 1:26 PM CDT Body Mass Index 23.81 05/02/2025 1:26 PM CDT Plan of Treatment Health Maintenance Due Date Last Done Comments Colon Cancer Screening-Colonoscopy 1955 Hepatitis B Screening 1973 Well Visit 65+ 2020 Covid-19 Vaccine (3 - Modern a risk series) 12/19/2020 11/21/2020, 10/24/2020 DTaP/Tdap/Td Vaccine (3 - Td or Tdap) 04/02/2024 04/02/2014, 08/15/2002 Osteoporosis Screening-Bone Density Scan 12/13/2024 12/13/2022, 10/31/2020 Breast Cancer Screening-Mammogram 01/11/2025 01/12/2024, 10/07/2022, 10/05/2021, Additional history exists Influenza Vaccine (#1) 2025 , 09/27/2023, 05/26/2023, Additional history exists Depression Screening 01/31/2026 01/31/2025, 08/01/20 24 Fall Risk Assessment 02/15/2026 02/15/2025, 01/29/2025, 08/01/2024 Hepatitis C Screening Completed 08/19/2017 Pneumococcal vaccine 65+ Completed 04/05/2022 Zoster Vaccine Completed 12/11/2022, 08/26/2022 Medical Devices Implanted Type Area Synthetic Filament Extruder Device Identifier Shelf Expiration Date Model / Serial / Lot [employer] A-5700.20 2.5mm 20mm Cortical Screw Bone - S0 - [id number] Implanted:Qty: 1 on 08/23/2018 by Teddy Shelton MD at [facility] Screw Left: Radius [employer] A-5700.20 / 0 / 0 [employer] A-5750.14/1 Aptus 2.5mm 14mm Lock Radius Screw Bone Karen - S0 - [id number] Implanted:Qty: 1 on 08/23/2018 by Teddy Shelton MD at [facility] Screw Left: Radius [employer] A-5750.14/ 1 / 0 / 0 [employer] A-5700.16/1 Aptus 2.5mm 16mm Hexadrive 7 Adaptive Wrist Radius Cortical - S0 - [id number] Implanted:Qty: 1 on 08/23/2018 by Teddy Shelton MD at [facility] Screw Left: Radius [employer] A-5700.16/ 1 / 0 / 0 [employer] A-4750.62 Aptus Trilock [id number] Hole Right Distal Radius Volar Plate - [id number] Implanted:Qty: 1 on 08/23/2018 by Teddy Shelton MD at [facility] Right: Radius [employer] A-4750.62 / / [employer] A-5750.16 2.5mm 16mm Lock Cortical Screw Bone - [id number] Implanted:Qty: 1 on 08/23/2018 by Teddy Shelton MD at [facility] Left: Radius [employer] A-5750.16 / / [employer] A-5750.18 2.5mm 18mm Lock Cortical Screw Bone - [id number] Implanted:Qty: 1 on 08/23/2018 by Teddy Shelton MD at [facility] Left: Radius [employer] A-5750.18 / / Screw 4.5x12mm Rescue Variable - [id number] - [id number] Implanted:Qty: 1 on 08/23/2018 by Teddy Shelton MD at [facility] Left: Radius Teranode [id number] / [id number] / [employer] A-5700.12 Aptus 2.5mm 12mm Cortical Screw Bone - [id number] Implanted:Qty: 1 on 08/23/2018 by Teddy Shelton MD at [facility] Left: Radius [employer] A-5700.12 / / Screw 10mm 2.7mm Nlkg X Drv Bone Mag - [id number] Implanted:Qty: 1 on 08/23/2018 by Teddy Shelton MD at [facility] Left: Radius [employer] [id number] / / [employer] A-4750.55 Aptus Trilock 42mmx1.6mm 6 Hole Distal Radius L Left Angle Plate - [id number] Implanted:Qty: 1 on 08/23/2018 by Teddy Shelton MD at [facility] Left: Radius [employer] A-4750.55 / / [employer] A-5750.12/1 Aptus Trilock 2.5mm 12mm Hexadrive 7 Adaptive Wrist Radius - S0 - [id number] Implanted:Qty: 1 on 08/23/2018 by Teddy Shelton MD at [facility] Left: Radius [employer] A-5750.12/ 1 / 0 / 0 [employer] A-5750.16 2.5mm 16mm Lock Cortical Screw Bone - [id number] Implanted:Qty: 1 on 08/23/2018 by Tedyd Shelton MD at [facility] Right: Radius [employer] A-5750.16 / / [employer] A-5750.18 2.5mm 18mm Lock Cortical Screw Bone - [id number] Implanted:Qty: 2 on 08/23/2018 by Teddy Shelton MD at [facility] Right: Radius [employer] A-5750.18 / / Screw Implanted:Qty: 2 on 08/23/2018 by Teddy Shelton MD at [facility] Right: Radius [employer] / [id number] / [employer] A-5700.12 Aptus 2.5mm 12mm Cortical Screw Bone - [id number] Implanted:Qty: 2 on 08/23/2018 by Teddy Shelton MD at [facility] Right: Radius [employer] A-5700.12 / / [employer] A-5700.14 Aptus 2.5mm 14mm Cortical Screw Bone - [id number] Implanted:Qty: 1 on 08/23/2018 by Teddy Shelton MD at [facility] Right: Radius [employer] A-5700.14 / / [employer] A-4750.37 - [id number] Implanted:Qty: 1 on 08/23/2018 by Teddy Shelton MD at [facility] Left: Radius [employer] A-4750.37 / / [employer] A-5700.14 Aptus 2.5mm 14mm Cortical Screw Bone - [id number] Implanted:Qty: 1 on 08/23/2018 by Teddy Shelton MD at [facility] Left: Radius [employer] A-5700.14 / / Screws Implanted:Qty: 1 on 08/23/2018 by Teddy Shelton MD at [facility] Left: Radius [employer] / [id number] / Procedures Procedure Name Priority Date/Time Associated Diagnosis Comments URINALYSIS, MICROSCOPIC ONLY STAT 05/02/2025 2:55 PM CDT Left frontal glioblastoma multiforme, EGFR amplified, 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 URINALYSIS AND REFLEX TO MICROSCOPIC AND CULTURE STAT 05/02/2025 2:55 PM CDT Left frontal glioblastoma multiforme, EGFR amplified, 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 MRI BRAIN W WO CONTRAST Schedule Routine, Read Routine (OP Routine) 04/29/2025 5:38 PM CDT Primary malignant neoplasm of frontal lobe (HCC) URINALYSIS AND REFLEX TO MICROSCOPIC AND CULTURE STAT 04/18/2025 2:34 PM CDT Left frontal glioblastoma multiforme, EGFR amplified, 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 DIFFERENTIAL AUTO STAT 04/18/2025 1:4 3 PM CDT Left frontal glioblastoma multiforme, EGFR amplified, 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 CBC WITH AUTO DIFFERENTIAL STAT 04/18/2025 1:43 PM CDT Left frontal glioblastoma multiforme, EGFR amplified, 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 TYPE AND SCREEN Routine 04/18/2025 1:43 PM CDT Glioblastoma (HCC) URINE CULTURE Routine 04/06/2025 5:30 PM CDT Urinary frequency POCT URINALYSIS DIPSTICK Routine 04/06/2025 2:49 PM CDT Urinary frequency URINALYSIS, MICROSCOPIC ONLY STAT 04/04/2025 2:13 PM CDT Left frontal glioblastoma multiforme, EGFR amplified, 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 URINE CULTURE STAT 04/04/2025 2:13 PM CDT URINALYSIS AND REFLEX TO MICROSCOPIC AND CULTURE STAT 04/04/2025 2:13 PM CDT Left frontal glioblastoma multiforme, EGFR amplified, 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 EGFR STAT 04/04/2025 12:49 PM CDT Left frontal glioblastoma multiforme, EGFR amplified, 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 COMPREHENSIVE METABOLIC PANEL STAT 04/04/2025 12:49 PM CDT Left frontal glioblastoma multiforme, EGFR amplified, 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 CT HEAD WO CONTRAST Schedule JESÚS, Read JESÚS (Appt Today, Awaiting Results) 04/03/2025 12:56 PM CDT Glioblastoma (HCC) RAD ONC ARIA SESSION SUMMARY 04/03/2025 11:58 AM CDT RAD ONC ARIA SESSION SUMMARY 04/02/2025 11:39 AM CDT RAD ONC ARIA SESSION SUMMARY 04/01/2025 2:59 PM CDT RAD ONC ARIA SESSION SUMMARY 03/29/2025 2:15 PM CDT RAD ONC ARIA SESSION SUMMARY 03/28/2025 9:23 AM CDT RAD ONC ARIA SESSION SUMMARY 03/27/2025 2:04 PM CDT RAD ONC ARIA SESSION SUMMARY 03/26/2025 9:11 AM CDT RAD ONC ARIA SESSION SUMMARY 03/25/2025 11:29 AM CDT RAD ONC ARIA SESSION SUMMARY 03/22/2025 9:49 AM CDT RAD ONC ARIA SESSION SUMMARY 03/21/2025 1:58 PM CDT URINALYSIS, MICROSCOPIC ONLY STAT 03/21/2025 9:32 AM CDT Left frontal glioblastoma multiforme, EGFR amplified, 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 EGFR Routine 02/28/2025 12:34 PM CDT Glioblastoma (HCC) COMPREHENSIVE METABOLIC PANEL Routine 02/28/2025 12:34 PM CDT Glioblastoma (HCC) SCREENING MAMMOGRAM BILATERAL W ZURDO Schedule Routine, Read Routine (OP Routine) 01/12/2024 3:42 PM CDT Screening mammogram, encounter for DEXA AXIAL SKELETON BONE DENSITY 1 OR MORE SITES Schedule Routine, Read Routine (OP Routine) 12/13/2022 10:16 AM CDT Asymptomatic menopausal state HEPATITIS C ANTIBODY Routine Gen Lab 08/19/2017 11:18 AM STATISTICIAN THEORETICAL from Last 3 Months or Most Recently Relevant to Health Maintenance Results * (ABNORMAL) Urinalysis reflex to microscopic and culture Urine (05/02/2025 2:55 PM CDT) Color, ur Straw Yellow Clarity, ur Clear Clear [facility] Specific gravity, ur 1.015 1.003 - 1.030 [facility] pH, urine 6.0 [facility] Comment: Interpretive Data U rine pH is affected by diet, medications, systemic acid-base disturbances, and renal tubular function. pH may affect urinary stone formation. For example, urine pH below 6.0 may help reduce the tendency for calcium phosphate stones and pH greater than 6.0 may reduce the tendency for uric acid stone formation. Source: [facility] Current Interpretive Data was last revised on 2017 Protein, ur ql Negative Negative [facility] Glucose, ur ql Negative Negative [facility] Ketones, ur Negative Negative [facility] Bilirubin, ur Negative Negative [facility] Blood, ur Negative Negative [facility] Urobilinogen, ur <2.0 <2.0 mg/dL [facility] Nitrite, ur Negative Negative [facility] Leukocyte esterase, ur Trace(A) [facility] UA reflex comment Reflex to microscopic UA will be performed. [facility] Urine 05/02/2025 2:55 PM CDT 05/02/2025 2:55 PM CDT Kervin Gonsales MD LAB MICROBIOLOGY - GENERA L ORDERABLES Final Result Performing Organization Address [facility] Co de Phone Number [facility] [place] [address] * (ABNORMAL) Urinalysis, microscopic only (05/02/2025 2:55 PM CDT) WBC, ur 0-5 0 - 5 /HPF RBC, ur 0-2 0 - 2 /HPF [facility] Epithelial cells, squamous, ur 1-5 0 - 5 /HPF [facility] Mucous, ur Present(A) [facility] Culture Reflex Comment Reflex conditions for urine culture (WBC >10) not met. [facility] Urine 05/02/2025 2:55 PM CDT 05/02/2025 2:55 PM CDT us Kervin Gonsales MD LAB URINE ORDERABLES Lauren l Result Performing Organization Address [facility] Co de Phone Number [facility] [place] [address] * MRI Brain W WO Contrast (04/29/2025 5:38 PM CDT) Anatomical Region Laterality Modality Head and Neck N/A Magnetic Resonan ce 04/30/2025 9:28 AM CDT Impressions 04/30/2025 2:01 PM CDT Redemonstrated postoperative findings of left frontal laser interstitial thermotherapy similar to prior study. No interval evidence of progressive disease. Dictated by: Martin Bee MD The radiology attending physician has personally reviewed this study, and had reviewed and/or edited this written report and agrees with it. Electronically signed by: Dion Link M.D. Narrative 04/30/2025 2:01 PM CDT EXAMINATION: Magnetic resonance imaging (MRI) of the brain and brainstem without and with contrast HISTORY: Left frontal glioblastoma status post gross total resection and adjuvant radiotherapy/chemotherapy, recurrence 01/03/2025 status post MANJIT and radiation/Avastin, follow-up TECHNIQUE: Multiplanar multi-weighted MRI of the brain and brainstem was performed without and with intravenous contrast using the brain tumor protocol. Contrast information: 10 mL Gadoterate Meglumine IV COMPARISON: 02/08/2025 FINDINGS: There are redemonstrated postoperative findings of left frontal craniotomy for tumor resection and laser interstitial thermal therapy. Diffusion restriction and susceptibility about the MANJIT treatment cavity is similar in appearance to prior study. Enhancement and edema about the treatment site is decreased. There is no definite associated perfusional abnormality. Left greater than right white matter T2 FLAIR hyperintensities in the centrum semiovale and proctor radiata are similar to prior study, likely posttreatment change. The superior sagittal sinus demonstrates normal venous flow. The corpus callosum is normal in shape and signal intensity. The posterior fossa is unremarkable. The pituitary and sella are normal. The brainstem and craniocervical junction are unremarkable. Diffusion weighted images reveal no hyperintensities to suggest acute cerebral infarction. The susceptibility weighted sequences reveal no evidence of acute or chronic hemorrhage. The ventricles are normal in size and position without evidence of hydrocephalus. The paranasal sinuses are normal. The visualized portions of the mastoids are unremarkable. The orbits appear normal. Normal flow voids are demonstrated in the carotid arteries and basilar artery. Procedure Note Dion Link MD - 04/30/2025 EXAMINATION: Magnetic resonance imaging (MRI) of the brain and brainstem without and with contrast HISTORY: Left frontal glioblastoma status post gross total resection and adjuvant radiotherapy/chemotherapy, recurrence 01/03/2025 status post MANJIT and radiation/Avastin, follow-up TECHNIQUE: Multiplanar multi-weighted MRI of the brain and brainstem was performed without and with intravenous contrast using the brain tumor protocol. Contrast information: 10 mL Gadoterate Meglumine IV COMPARISON: 02/08/2025 FINDINGS: There are redemonstrated postoperative findings of left frontal craniotomy for tumor resection and laser interstitial thermal therapy. Diffusion restriction and susceptibility about the MANJIT treatment cavity is similar in appearance to prior study. Enhancement and edema about the treatment site is decreased. There is no definite associated perfusional abnormality. Left greater than right white matter T2 FLAIR hyperintensities in the centrum semiovale and proctor radiata are similar to prior study, likely posttreatment change. The superior sagittal sinus demonstrates normal venous flow. The corpus callosum is normal in shape and signal intensity. The posterior fossa is unremarkable. The pituitary and sella are normal. The brainstem and craniocervical junction are unremarkable. Diffusion weighted images reveal no hyperintensities to suggest acute cerebral infarction. The susceptibility weighted sequences reveal no evidence of acute or chronic hemorrhage. The ventricles are normal in size and position without evidence of hydrocephalus. The paranasal sinuses are normal. The visualized portions of the mastoids are unremarkable. The orbits appear normal. Normal flow voids are demonstrated in the carotid arteries and basilar artery. IMPRESSION: Redemonstrated postoperative findings of left frontal laser interstitial thermotherapy similar to prior study. No interval evidence of progressive disease. Dictated by: Martin Bee MD The radiology attending physician has personally reviewed this study, and had reviewed and/or edited this written report and agrees with it. Electronically signed by: Dion Link M.D. Kervin Gonsales MD IM MRI PROCEDURES Final Result * Urinalysis reflex to microscopic and culture Urine (04/18/2025 2:34 PM CDT) Color, ur Straw Yellow Clarity, ur Clear Clear [facility] Specific gravity, ur 1.007 1.003 - 1.030 [facility] pH, urine 6.0 [facility] Comment: Interpretive Data U rine pH is affected by diet, medications, systemic acid-base disturbances, and renal tubular function. pH may affect urinary stone formation. For example, urine pH below 6.0 may help reduce the tendency for calcium phosphate stones and pH greater than 6.0 may reduce the tendency for uric acid stone formation. Source: [facility] Current Interpretive Data was last revised on 2017 Protein, ur ql Negative Negative [facility] Glucose, ur ql Negative Negative [facility] Ketones, ur Negative Negative [facility] Bilirubin, ur Negative Negative [facility] Blood, ur Negative Negative [facility] Urobilinogen, ur <2.0 <2.0 mg/dL [facility] Nitrite, ur Negative Negative [facility] Leukocyte esterase, ur Negative [facility] UA reflex comment Reflex conditions for microscopic UA and culture not met. [facility] Urine 04/18/2025 2:34 PM CDT 04/18/2025 2:44 PM CDT Kervin Gonsales MD LAB MICROBIOLOGY - GENERA L ORDERABLES Final Result [facility] Department [place] [address] * Differential, auto (04/18/2025 1:43 PM CDT) Neutrophil abs 6.01 1.50 - 6.50 K/cumm Comment:Testing performed by : [facility], [address] [place], [place] [phone] Lymphocyte abs 1.75 0.80 - 3.30 K[facility]cumm [facility] Comment:Testing performed by : [facility], [address] [place] [phone] Monocyte abs 0.71 0.20 - 0.80 K/cumm [facility] Comment:Testing performed by : [facility], [address] [place] [phone] Eosinophil abs 0.11 0.00 - 0.50 K/cumm [facility] Comment:Testing performed by : [facility], [address] [place] [phone] Basophil abs 0.09 0.00 - 0.10 K/cumm [facility] Comment:Testing performed by : [facility], [address] [place] [phone] Neutrophil pct 69.3 % [facility] Comment: Interpretive Data Percent cell count reference ranges are not reported, since discordance with absolute values may lead to misinterpretation of CBC data. Current Interpretive Data was last revised on 2017. Testing performed by: [facility], [address] [place] [phone] Lymphocyte pct 20.2 % [facility] Comment: Interpretive Data Percent cell count reference ranges are not reported, since discordance with absolute values may lead to misinterpretation of CBC data. Current Interpretive Data was last revised on 2017. Testing performed by: [facility], [address] [place] [phone] Monocyte pct 8.1 % [facility] Comment: Interpretive Data Percent cell count reference ranges are not reported, since discordance with absolute values may lead to misinterpretation of CBC data. Current Interpretive Data was last revised on 2017. Testing performed by: [facility], [address] [place] [phone] Eosinophil pct 1.3 % [facility] Comment: Interpretive Data Percent cell count reference ranges are not reported, since discordance with absolute values may lead to misinterpretation of CBC data. Current Interpretive Data was last revised on 2017. Testing performed by: [facility], [address] [place] [phone] Basophil pct 1.1 % [facility] Comment: Interpretive Data Percent cell count reference ranges are not reported, since discordance with absolute values may lead to misinterpretation of CBC data. Current Interpretive Data was last revised on 2017. Testing performed by: [facility], [address] [place] [phone] Blood 04/18/2025 1:43 PM CDT 04/18/2025 1:48 PM CDT Kervin Gonsales MD LAB BLOOD ORDERABLES Lauren l Result [facility] Department [place] [address] * CBC with auto differential (04/18/2025 1:43 PM CDT) WBC 8.67 3.80 - 9.90 [facility] Comment:Testing performed by : [facility], [address] [place] [address] Hgb 15.2 11.9 - 15.5 g/dL [facility] Comment:Testing performed by : [facility], [address] [place] [address] Hct 44.6 35.6 - 45.5 % [facility] Comment:Testing performed by : [facility], [address] [place] [address] Plt 282 150 - 400 K/cumm [facility] Comment:Testing performed by : [facility], [address] [place] [address] MPV 8.1 6.8 - 10.4 fL [facility] Comment:Testing performed by : [facility], [address] [place] [address] RBC 4.81 3.90 - 5.20 M/cumm [facility] Comment:Testing performed by : [facility], [address] [place] [address] MCV 92.7 81.3 - 96.4 fL [facility] Comment:Testing performed by : [facility], [address] [place] [address] MCH 31.6 27.1 - 33.3 pg [facility] Comment:Testing performed by : [facility], [address] [place] [address] MCHC 34.1 32.3 - 35.7 g/dL [facility] Comment:Testing performed by : [facility], [address] [place] [address] RDW CV 14.0 11.1 - 14.9 % [facility] Comment:Testing performed by : [facility], [address] [place] [phone] NRBC abs 0.00 0.00 - 0.01 K/cumm [facility] Comment:Testing performed by : [facility], [address] [place] [phone] Blood 04/18/2025 1:43 PM CDT 04/18/2025 1:48 PM CDT Kervin Gonsales MD LAB BLOOD ORDERABLES Lauren l Result Performing Organization Address City/[facility]/ZIP Co de Phone Number [facility] Department [place] [address] * Type and screen (04/18/2025 1:43 PM CDT) Richard, indirect Negative ABO Rh O Positive [facility] Blood 04/18/2025 1:43 PM CDT 04/18/2025 1:57 PM CDT Narrative [facility] - 04/18/2025 2:55 PM CDT Has the patient had Daratumumab or Isatuximab in the past 6 months?->Unknown us Fabricio Alvarez MD LAB BLOOD BANK TEST ORDER PHILIPP Final Result Performing Organization Address City/[facility]/ZIP Co de Phone Number [facility] Department [place] [address] * Urine culture Urine, clean voided (04/06/2025 5:30 PM CDT) Report Final Report: Growth indicative of contamination with periurethral conor. Please submit a new specimen with special attention given to the collection process and to prompt transport to the laboratory. Comment:Testing performed by : [facility], [address] [facility], [place]., [address] Organism GROWTH INDICATES CONTAM WITH PERIURETHRAL CONOR. NANCI Urine, clean voided 04/06/2025 5:30 PM CDT 04/06/2025 8:00 PM CDT Narrative NANCI SOLOMON - 04/08/2025 7:46 AM CDT Testing performed by [facility] Microbiology Laboratory ([phone]) Bri Randle NP LAB MICROBIOLOGY - GENER AL ORDERABLES Final Result NANCI [id number] Department [place] [address] * (ABNORMAL) POCT urinalysis dipstick (04/06/2025 2:49 PM CDT) Color, Urine, POC Colorless Clarity, ur, POC Clear Clear Glucose, ur, POC Negative Negative Bilirubin, ur, POC Negative Negative Ketones, ur, POC Negative Negative Specific [place], POC 1.015 1.003 - 1.030 Blood, ur, POC Trace(A) Negative pH, ur, POC 6.0 5.0 - 8.0 Protein, ur, POC Negative Negative Urobilinogen, urine, POC 0.2 0.2 - 1.0 mg/dL Nitrite, ur, POC Negative Negative Leukocytes, ur, POC Negative Negative Lot Number [id number] Urine 04/06/2025 2:49 PM CDT Bri Randle NP POINT OF CARE TEST ORDER PHILIPP Final Result * (ABNORMAL) Urinalysis reflex to microscopic and culture Urine (04/04/2025 2:13 PM CDT) Color, ur Straw Yellow Clarity, ur Cloudy(A) Clear [facility] Specific gravity, ur 1.025 1.003 - 1.030 [facility] pH, urine 5.5 [facility] Comment: Interpretive Data U rine pH is affected by diet, medications, systemic acid-base disturbances, and renal tubular function. pH may affect urinary stone formation. For example, urine pH below 6.0 may help reduce the tendency for calcium phosphate stones and pH greater than 6.0 may reduce the tendency for uric acid stone formation. Source: [facility] Laboratories Current Interpretive Data was last revised on 2017 Protein, ur ql Negative Negative [facility] Glucose, ur ql Negative Negative [facility] Ketones, ur Negative Negative [facility] Bilirubin, ur Negative Negative [facility] Blood, ur Negative Negative [facility] Urobilinogen, ur <2.0 <2.0 mg/dL [facility] Nitrite, ur Negative Negative [facility] Leukocyte esterase, ur 2+(A) [facility] UA reflex comment Reflex to microscopic UA will be performed. [facility] Urine 04/04/2025 2:13 PM CDT 04/04/2025 2:15 PM CDT Kervin Gonsales MD LAB MICROBIOLOGY - GENERA L ORDERABLES Final Result Performing Organization Address [facility] de Phone Number [facility] Department [place] [address] * (ABNORMAL) Urinalysis, microscopic only (04/04/2025 2:13 PM CDT) WBC, ur 11-20(A) 0 - 5 /HPF RBC, ur 0-2 0 - 2 /HPF [facility] Epithelial cells, squamous, ur 1-5 0 - 5 /HPF [facility] Bacteria, ur Trace(A) [facility] Mucous, ur Present(A) [facility] Uric acid crystals, ur 4+(A) [facility] Hyaline casts, ur 11-20(A) 0 - 10 /LPF [facility] Granular casts, ur 1-5(A) 0 - 0 /LPF [facility] Culture Reflex Comment Reflex to urine culture will be performed. [facility] Urine 04/04/2025 2:13 PM CDT 04/04/2025 2:15 PM CDT Kervin Gonsales MD LAB URINE ORDERABLES Lauren l Result Performing Organization Address [facility] Co de Phone Number [facility] Department [place] [address] * Urine culture Urine (04/04/2025 2:13 PM CDT) Report Final Report: Less than 100,000 colonies/mL (clinically insignificant growth based on current clinical standards) Organism (CLINICALLY INSIGNIFICANT GROWTH [facility] Urine 04/04/2025 2:13 PM CDT 04/04/2025 2:55 PM CDT [facility]ative [facility] - 04/05/2025 5:44 PM CDT Urine culture reflexed based upon urinalysis results. Testing performed by [facility] Microbiology Laboratory ([phone]) Kervin Gonsales MD LAB MICROBIOLOGY - GENERA L ORDERABLES Final Result [facility] [address] [facility] Department [place] [address] * eGFR (04/04/2025 12:49 PM CDT) eGFR 73 >=60 mL/min/1. 73 m2 Comment: Interpretive Data Reference Interval Normal >/= 90 mL/min/1.73m2 Mildly decreased* 60 - 89 mL/min/1.73m2 Mildly to moderately decreased 45 - 59 mL/min/1.73m2 Moderately to severely decreased 30 - 44 mL/min/1.73m2 Severely decreased 15 - 29 mL/min/1.73m2 Kidney Failure < 15 mL/min/1.73m2 *Relative to young adult level Estimated glomerular filtration rate is determined by the 2020 CKD-EPI equation recommended by the National Kidney Foundation (A Unifying Approach to GFR Estimation: Recommendations of the NKF-ASK Task Force on Reassessing the Inclusion of Race in Diagnosing Kidney Disease, JASN 202). The CKD-EPI equation should not be used for patients with unstable renal function and has not been validated in children and those over 70. Current interpretive data was last reviewed 2021. Blood 04/04/2025 12:4 9 PM CDT 04/04/2025 12:52 PM CDT Kervin Gonsales MD LAB BLOOD ORDERABLES Lauren palmer Result [facility] Department [place] [address] * Differential, auto (04/04/2025 12:49 PM CDT) Neutrophil abs 5.40 1.50 - 6.50 K/cumm Comment:Testing performed by : [facility], [address] [place] [address] Lymphocyte abs 1.69 0.80 - 3.30 K/cumm [facility] Comment:Testing performed by : [facility], [address] [place], [place] [phone] Monocyte abs 0.75 0.20 - 0.80 K/cumm [facility] Comment:Testing performed by : [facility], [address] [place] [address] Eosinophil abs 0.09 0.00 - 0.50 K/cumm [facility] Comment:Testing performed by : [facility], [address] [place], [place] [phone] Basophil abs 0.08 0.00 - 0.10 K/cumm [facility] Comment:Testing performed by : [facility], [address] [place], [place] [phone] Neutrophil pct 67.4 % [facility] Comment: Interpretive Data Percent cell count reference ranges are not reported, since discordance with absolute values may lead to misinterpretation of CBC data. Current Interpretive Data was last revised on 2017. Testing performed by: [facility], [address] [place] [address] Lymphocyte pct 21.1 % [facility] Comment: Interpretive Data Percent cell count reference ranges are not reported, since discordance with absolute values may lead to misinterpretation of CBC data. Current Interpretive Data was last revised on 2017. Testing performed by: [facility], [address] [place] [address] Monocyte pct 9.3 % [facility] [place] Comment: Interpretive Data Percent cell count reference ranges are not reported, since discordance with absolute values may lead to misinterpretation of CBC data. Current Interpretive Data was last revised on 2017. Testing performed by: [facility], [address] [place] [phone] Eosinophil pct 1.1 % [facility] [place] Comment: Interpretive Data Percent cell count reference ranges are not reported, since discordance with absolute values may lead to misinterpretation of CBC data. Current Interpretive Data was last revised on 2017. Testing performed by: [facility], [address] [place] [address] Basophil pct 1.1 % [facility] Comment: Interpretive Data Percent cell count reference ranges are not reported, since discordance with absolute values may lead to misinterpretation of CBC data. Current Interpretive Data was last revised on 2017. Testing performed by: [facility], [address] [place] [address] Blood 04/04/2025 12:4 9 PM CDT 04/04/2025 12:51 PM CDT Kervin Gonsales MD LAB BLOOD ORDERABLES Lauren l Result [facility] Department [place] [address] * (ABNORMAL) CBC with auto differential (04/04/2025 12:49 PM CDT) WBC 8.01 3.80 - 9.90 K/cumm Comment:Testing performed by : [facility], [address] [place] [address] Hgb 15.0 11.9 - 15.5 g/dL [facility] [place] Comment:Testing performed by : [facility], [address] [place] [address] Hct 44.4 35.6 - 45.5 % [facility] Comment:Testing performed by : [facility], [address] [place] [address] Plt 407(H) 150 - 400 K/cumm [facility] Comment:Testing performed by : [facility], [address] [place] [address] MPV 7.3 6.8 - 10.4 fL [facility] Comment:Testing performed by : [facility], [address] [place], [place] [phone] RBC 4.78 3.90 - 5.20 M/cumm [facility] Comment:Testing performed by : [facility], [address] [place], [place] [phone] MCV 92.9 81.3 - 96.4 fL [facility] Comment:Testing performed by : [facility], [address] [place], [place] [phone] MCH 31.3 27.1 - 33.3 pg [facility] Comment:Testing performed by : [facility], [address] [place] [address] MCHC 33.7 32.3 - 35.7 g/dL [facility] Comment:Testing performed by : [facility], [address] [place] [address] RDW CV 14.4 11.1 - 14.9 % [facility] Comment:Testing performed by : [facility], [address] [place] [address] NRBC abs 0.00 0.00 - 0.01 K/cumm [facility] Comment:Testing performed by : [facility], [address] [place] [address] Blood 04/04/2025 12:4 9 PM CDT 04/04/2025 12:51 PM CDT us Kervin Gonsales MD LAB BLOOD ORDERABLES Lauren l Result [facility] Department of Laboratories [place] [id number] * Comprehensive metabolic panel (04/04/2025 12:49 PM CDT) Sodium 142 135 - 145 mmol/L Potassium, pl 3.7 3.3 - 4.9 mmol/L [facility] Chloride 106 97 - 110 mmol/L [facility] CO2 25 22 - 32 mmol/L [facility] Anion gap 11 2 - 15 mmol/L [facility] BUN 16 6 - 25 mg/dL [facility] Creatinine 0.86 0.60 - 1.10 mg/dL [facility] Glucose 119 70 - 199 mg/dL [facility] Comment: Interpretive Data Fasting glucose >/= 126 mg/dl is diagnostic for diabetes. Fasting is defined as no caloric intake for at least 8 hours. Fasting glucose between 100 mg/dl to 125 mg/dl is diagnostic of prediabetes. In a patient with classic symptoms of hyperglycemia or hyperglycemic crisis, a random glucose >/= 200 mg/dl is diagnostic for diabetes. In the absence of unequivocal hyperglycemia, results should be confirmed by repeat testing. The classification and Diagnosis of Diabetes Diabetes Care 2021; 46: S19-S40. Current interpretive data was last revised 2022. Calcium 9.7 8.5 - 10.3 mg/dL [facility] Bilirubin, total 0.3 0.1 - 1.2 mg/dL [facility] Protein, pl 7.3 6.5 - 8.5 g/dL [facility] Albumin 4.3 3.5 - 5.0 g/dL [facility] Alk phos 86 40 - 130 Units/L [facility] ALT 28 7 - 45 Units/L [facility] AST 29 10 - 45 Units/L [facility] Blood 04/04/2025 12:4 9 PM CDT 04/04/2025 12:52 PM CDT us Kervin Gonsales MD LAB BLOOD ORDERABLES Lauren palmer Result [facility] Department [place] [address] * CT head without contrast (04/03/2025 12:56 PM CDT) Anatomical Region Laterality Modality Head and Neck N/A Computed Tomogra phy 04/03/2025 2:38 PM CDT Impressions 04/03/2025 6:57 PM CDT 1. Postsurgical changes of left frontal mass biopsy and laser interstitial chemotherapy with decrease size of the left frontal lobe mass and improved associated vasogenic edema and mass effect compared to 02/21/2025. 2. No acute intracranial finding. Dictated by: Irene Ramos MD, MPH The radiology attending physician has personally reviewed this study, and had reviewed and/or edited this written report and agrees with it. Electronically signed by: Khris Huddleston M.D. Narrative 04/03/2025 6:57 PM CDT EXAMINATION: CT head without contrast HISTORY: 69-year-old female with a history of glioblastoma status post total resection (2017) and radiation therapy. Presenting after fall with head trauma TECHNIQUE: CT of the head was performed with images acquired from skull base to vertex without intravenous contrast. COMPARISON: CT 02/21/2025, MR 02/08/2025 FINDINGS: Postsurgical changes of left frontal lobe mass biopsy and laser interstitial thermotherapy with persistent 1.6 cm hypoattenuating mass that has decreased in size compared to prior measuring 2.1 cm. Resolved punctate focus of gas within the treatment cavity unchanged focus of calcification. Significantly improved vasogenic edema in the frontal lobes and left parietal lobe compared to the prior. Resolved mass effect on the left lateral ventricle. No midline shift. Basilar cisterns are patent. There is no acute intracranial hemorrhage. The visualized portions of the orbits are normal. The visualized portions of the mastoids are normal. Mucus retention cyst within the right maxillary sinus. No fractures are identified. Procedure Note Khris Huddleston MD - 04/03/2025 EXAMINATION: CT head without contrast HISTORY: 69-year-old female with a history of glioblastoma status post total resection (2017) and radiation therapy. Presenting after fall with head trauma TECHNIQUE: CT of the head was performed with images acquired from skull base to vertex without intravenous contrast. COMPARISON: CT 02/21/2025, MR 02/08/2025 FINDINGS: Postsurgical changes of left frontal lobe mass biopsy and laser interstitial thermotherapy with persistent 1.6 cm hypoattenuating mass that has decreased in size compared to prior measuring 2.1 cm. Resolved punctate focus of gas within the treatment cavity unchanged focus of calcification. Significantly improved vasogenic edema in the frontal lobes and left parietal lobe compared to the prior. Resolved mass effect on the left lateral ventricle. No midline shift. Basilar cisterns are patent. There is no acute intracranial hemorrhage. The visualized portions of the orbits are normal. The visualized portions of the mastoids are normal. Mucus retention cyst within the right maxillary sinus. No fractures are identified. IMPRESSION: 1. Postsurgical changes of left frontal mass biopsy and laser interstitial chemotherapy with decrease size of the left frontal lobe mass and improved associated vasogenic edema and mass effect compared to 02/21/2025. 2. No acute intracranial finding. Dictated by: Irene Ramos MD, MPH The radiology attending physician has personally reviewed this study, and had reviewed and/or edited this written report and agrees with it. Electronically signed by: Khris Huddleston M.D. us Marvin Gonzales MD PhD IMG CT PROCEDURES Final R esult * RAD ONC ARIA SESSION SUMMARY (04/03/2025 11:58 AM CDT) Course Name [id number] ARIA Course Plan Date 02/25/2025 9:05 AM ARIA Elapsed Days 13 ARIA Treatment Start Date 03/21/2025 ARIA Treatment Site [id number] ARIA Dose Given To Date (cGy) 3,500 ARIA Session Dosage Given (cGy) 350 ARIA Plan ID LT_BRAIN ARIA Fractions Treated 10 ARIA Prescribed Dose Per Fraction (cGy) 350 ARIA Prescribed Total Dose (cGy) 3,500 ARIA 04/03/2025 11:5 8 AM CDT us Not In File Miscellaneous RADIATION ONCOLOGY ORD ERABLES Final Result ARIA * RAD ONC ARIA SESSION SUMMARY (04/02/2025 11:39 AM CDT) Course Name [id number] ARIA Course Plan Date 02/25/2025 9:05 AM ARIA Elapsed Days 12 ARIA Treatment Start Date 03/21/2025 ARIA Treatment Site [id number] ARIA Dose Given To Date (cGy) 3,150 ARIA Session Dosage Given (cGy) 350 ARIA Plan ID LT_BRAIN ARIA Fractions Treated 9 ARIA Prescribed Dose Per Fraction (cGy) 350 ARIA Prescribed Total Dose (cGy) 3,500 ARIA 04/02/2025 11:3 9 AM CDT us Not In File Miscellaneous RADIATION ONCOLOGY ORD ERABLES Final Result SAM * RAD ONC ARIA SESSION SUMMARY (04/01/2025 2:59 PM CDT) Course Name [id number] ARIA Course Plan Date 02/25/2025 9:05 AM ARIA Elapsed Days 11 ARIA Treatment Start Date 03/21/2025 ARIA Treatment Site [id number] ARIA Dose Given To Date (cGy) 2,800 ARIA Session Dosage Given (cGy) 350 ARIA Plan ID LT_BRAIN ARIA Fractions Treated 8 ARIA Prescribed Dose Per Fraction (cGy) 350 ARIA Prescribed Total Dose (cGy) 3,500 ARIA 04/01/2025 2:59 PM CDT us Not In File Miscellaneous RADIATION ONCOLOGY ORD ERABLES Final Result ARIA * RAD ONC ARIA SESSION SUMMARY (03/29/2025 2:15 PM CDT) Course Name [id number] ARIA Course Plan Date 02/25/2025 9:05 AM ARIA Elapsed Days 8 ARIA Treatment Start Date 03/21/2025 ARIA Treatment Site [id number] ARIA Dose Given To Date (cGy) 2,450 ARIA Session Dosage Given (cGy) 350 ARIA Plan ID LT_BRAIN ARIA Fractions Treated 7 ARIA Prescribed Dose Per Fraction (cGy) 350 ARIA Prescribed Total Dose (cGy) 3,500 ARIA 03/29/2025 2:15 PM CDT us Not In File Miscellaneous RADIATION ONCOLOGY ORD ERABLES Final Result Performing Organization Address City/State/[facility] Co de Phone Number SAM * RAD ONC ARIA SESSION SUMMARY (03/28/2025 9:23 AM CDT) Course Name [id number] ARIA Course Plan Date 02/25/2025 9:05 AM ARIA Elapsed Days 7 ARIA Treatment Start Date 03/21/2025 ARIA Treatment Site [id number] ARIA Dose Given To Date (cGy) 2,100 ARIA Session Dosage Given (cGy) 350 ARIA Plan ID LT_BRAIN ARIA Fractions Treated 6 ARIA Prescribed Dose Per Fraction (cGy) 350 ARIA Prescribed Total Dose (cGy) 3,500 ARIA 03/28/2025 9:23 AM CDT us Not In File Miscellaneous RADIATION ONCOLOGY ORD ERABLES Final Result Performing Organization Address [facility] Co de Phone Number ARIMadi * RAD ONC ARIA SESSION SUMMARY (03/27/2025 2:04 PM CDT) Course Name [id number] ARIA Course Plan Date 02/25/2025 9:05 AM ARIA Elapsed Days 6 ARIA Treatment Start Date 03/21/2025 ARIA Treatment Site [id number] ARIA Dose Given To Date (cGy) 1,750 ARIA Session Dosage Given (cGy) 350 ARIA Plan ID LT_BRAIN ARIA Fractions Treated 5 ARIA Prescribed Dose Per Fraction (cGy) 350 ARIA Prescribed Total Dose (cGy) 3,500 ARIA 03/27/2025 2:04 PM CDT us Not In File Miscellaneous RADIATION ONCOLOGY ORD ERABLES Final Result ARIA * RAD ONC ARIA SESSION SUMMARY (03/26/2025 9:11 AM CDT) Course Name [id number] ARIA Course Plan Date 02/25/2025 9:05 AM ARIA Elapsed Days 5 ARIA Treatment Start Date 03/21/2025 ARIA Treatment Site [id number] ARIA Dose Given To Date (cGy) 1,400 ARIA Session Dosage Given (cGy) 350 ARIA Plan ID LT_BRAIN ARIA Fractions Treated 4 ARIA Prescribed Dose Per Fraction (cGy) 350 ARIA Prescribed Total Dose (cGy) 3,500 ARIA 03/26/2025 9:11 AM CDT us Not In File Miscellaneous RADIATION ONCOLOGY ORD ERABLES Final Result Performing Organization Address [facility] Co de Phone Number ARIA * RAD ONC ARIA SESSION SUMMARY (03/25/2025 11:29 AM CDT) Course Name [id number] 025 ARIA Course Plan Date 02/25/2025 9:05 AM ARIA Elapsed Days 4 ARIA Treatment Start Date 03/21/2025 ARIA Treatment Site [id number] ARIA Dose Given To Date (cGy) 1,050 ARIA Session Dosage Given (cGy) 350 ARIA Plan ID LT_BRAIN ARIA Fractions Treated 3 ARIA Prescribed Dose Per Fraction (cGy) 350 ARIA Prescribed Total Dose (cGy) 3,500 ARIA 03/25/2025 11:2 9 AM CDT us Not In File Miscellaneous RADIATION ONCOLOGY ORD ERABLES Final Result ARIA * RAD ONC ARIA SESSION SUMMARY (03/22/2025 9:49 AM CDT) Course Name [id number] 025 ARIA Course Plan Date 02/25/2025 9:05 AM ARIA Elapsed Days 1 ARIA Treatment Start Date 03/21/2025 ARIA Treatment Site [id number] ARIA Dose Given To Date (cGy) 700 ARIA Session Dosage Given (cGy) 350 ARIA Plan ID LT_BRAIN ARIA Fractions Treated 2 ARIA Prescribed Dose Per Fraction (cGy) 350 ARIA Prescribed Total Dose (cGy) 3,500 ARIA 03/22/2025 9:49 AM CDT us Not In File Miscellaneous RADIATION ONCOLOGY ORD ERABLES Final Result Performing Organization Address City/[facility] Co de Phone Number SAM * RAD ONC ARIA SESSION SUMMARY (03/21/2025 1:58 PM CDT) Course Name [id number] 025 ARIA Course Plan Date 02/25/2025 9:05 AM ARIA Elapsed Days 0 ARIA Treatment Start Date 03/21/2025 ARIA Treatment Site [id number] ARIA Dose Given To Date (cGy) 350 ARIA Session Dosage Given (cGy) 350 ARIA Plan ID LT_BRAIN ARIA Fractions Treated 1 ARIA Prescribed Dose Per Fraction (cGy) 350 ARIA Prescribed Total Dose (cGy) 3,500 ARIA 03/21/2025 1:58 PM CDT us Not In File Miscellaneous RADIATION ONCOLOGY ORD ERABLES Final Result Performing Organization Address [facility] de Phone Number SAM * (ABNORMAL) Urinalysis reflex to microscopic and culture Urine (03/21/2025 9:32 AM CDT) Color, ur Straw Yellow Clarity, ur Clear Clear [facility] Specific gravity, ur 1.014 1.003 - 1.030 [facility] pH, urine 6.5 [facility] Comment: Interpretive Data U rine pH is affected by diet, medications, systemic acid-base disturbances, and renal tubular function. pH may affect urinary stone formation. For example, urine pH below 6.0 may help reduce the tendency for calcium phosphate stones and pH greater than 6.0 may reduce the tendency for uric acid stone formation. Source: [facility] Current Interpretive Data was last revised on 2017 Protein, ur ql Negative Negative [facility] Glucose, ur ql Negative Negative [facility] Ketones, ur Negative Negative [facility] Bilirubin, ur Negative Negative [facility] Blood, ur Negative Negative [facility] Urobilinogen, ur <2.0 <2.0 mg/dL [facility] Nitrite, ur Negative Negative [facility] Leukocyte esterase, ur 2+(A) [facility] UA reflex comment Reflex to microscopic UA will be performed. [facility] Urine 03/21/2025 9:32 AM CDT 03/21/2025 9:32 AM CDT Kervin Gonsales MD LAB MICROBIOLOGY - GENERA L ORDERABLES Final Result [facility] Department [place] [address] * (ABNORMAL) Urinalysis, microscopic only (03/21/2025 9:32 AM CDT) WBC, ur 6-10(A) 0 - 5 /HPF RBC, ur 0-2 0 - 2 /HPF [facility] Epithelial cells, squamous, ur 1-5 0 - 5 /HPF [facility] Bacteria, ur Trace(A) [facility] Mucous, ur Present(A) [facility] Hyaline casts, ur 1-5 0 - 10 /LPF [facility] Culture Reflex Comment Reflex conditions for urine culture (WBC >10) not met. [facility] Urine 03/21/2025 9:32 AM CDT 03/21/2025 9:32 AM CDT Kervin Gonsales MD LAB URINE ORDERABLES Lauren l Result [facility] Department [place] [address] * Differential, auto (03/21/2025 8:07 AM CDT) Neutrophil abs 3.45 1.50 - 6.50 K/cumm Comment:Testing performed by : [facility], [address] [place] [phone] Lymphocyte abs 1.14 0.80 - 3.30 K/cumm [facility] Comment:Testing performed by : [facility], [address] [place] [phone] Monocyte abs 0.53 0.20 - 0.80 K/cumm [facility] Comment:Testing performed by : [facility], [address] [place], [place] [id number] Eosinophil abs 0.23 0.00 - 0.50 K/cumm [facility] Comment:Testing performed by : [facility], [address] [place] [phone] Basophil abs 0.05 0.00 - 0.10 K/cumm [facility] Comment:Testing performed by : [facility], [address] [place] [address] Neutrophil pct 64.0 % [facility] Comment: Interpretive Data Percent cell count reference ranges are not reported, since discordance with absolute values may lead to misinterpretation of CBC data. Current Interpretive Data was last revised on 2017. Testing performed by: [facility], [address] [place] [phone] Lymphocyte pct 21.1 % [facility] Comment: Interpretive Data Percent cell count reference ranges are not reported, since discordance with absolute values may lead to misinterpretation of CBC data. Current Interpretive Data was last revised on 2017. Testing performed by: [facility], [address] [place] [phone] Monocyte pct 9.9 % [facility] Comment: Interpretive Data Percent cell count reference ranges are not reported, since discordance with absolute values may lead to misinterpretation of CBC data. Current Interpretive Data was last revised on 2017. Testing performed by: [facility], [address] [place] [phone] Eosinophil pct 4.2 % [facility] Comment: Interpretive Data Percent cell count reference ranges are not reported, since discordance with absolute values may lead to misinterpretation of CBC data. Current Interpretive Data was last revised on 2017. Testing performed by: [facility], [address] [place] [phone] Basophil pct 0.9 % [facility] Comment: Interpretive Data Percent cell count reference ranges are not reported, since discordance with absolute values may lead to misinterpretation of CBC data. Current Interpretive Data was last revised on 2017. Testing performed by: [facility], [address] [place] [phone] Blood 03/21/2025 8:07 AM CDT 03/21/2025 8:08 AM CDT us Kervin Gonsales MD LAB BLOOD ORDERABLES Lauren palmer Result [facility] Department [place] [address] * CBC with auto differential (03/21/2025 8:07 AM CDT) WBC 5.40 3.80 - 9.90 K/cumm Comment:Testing performed by : [facility], [address] [place] [address] Hgb 14.6 11.9 - 15.5 g/dL [facility] Comment:Testing performed by : [facility], [address] [place] [address] Hct 43.5 35.6 - 45.5 % [facility] Comment:Testing performed by : [facility], [address] [place] [address] Plt 309 150 - 400 K/cumm [facility] Comment:Testing performed by : [facility], [address] [place] [address] MPV 7.4 6.8 - 10.4 fL [facility] Comment:Testing performed by : [facility], [address] [place] [address] RBC 4.64 3.90 - 5.20 M/cumm [facility] Comment:Testing performed by : [facility], [address] [place], [place] [phone] MCV 93.8 81.3 - 96.4 fL [facility] Comment:Testing performed by : [facility], [address] [place], [place] [phone] MCH 31.5 27.1 - 33.3 pg [facility] Comment:Testing performed by : [facility], [address] [place], [place] [phone] MCHC 33.5 32.3 - 35.7 g/dL [facility] Comment:Testing performed by : [facility], [address] [place], [place] [phone] RDW CV 14.7 11.1 - 14.9 % [facility] Comment:Testing performed by : [facility], [address] [place], [place] [phone] NRBC abs 0.00 0.00 - 0.01 K/cumm [facility] Comment:Testing performed by : [facility], [address] [place], [place] [phone] Blood 03/21/2025 8:07 AM CDT 03/21/2025 8:08 AM CDT Kervin Gonsales MD LAB BLOOD ORDERABLES Lauren l Result [facility] Department of Laboratories [place] [id number] * RAD ONC ARIA COURSE SUMMARY (03/12/2025 9:54 AM CDT) Course Name [id number] ARIA Course Plan Date 08/09/2017 3:12 PM ARIA Elapsed Days 41 ARIA Treatment Start Date 08/25/2017 ARIA Treatment Site PTV1 4600 ARIA Dose Given To Date (cGy) 4,600 ARIA Session Dosage Given (cGy) 0 ARIA Treatment Site PTV2 1400 ARIA Dose Given To Date (cGy) 1,400 ARIA Session Dosage Given (cGy) 0 ARIA Plan ID BRAIN ARIA Fractions Treated 23 ARIA Prescribed Dose Per Fraction (cGy) 200 ARIA Prescribed Total Dose (cGy) 4,600 ARIA Plan ID BRAIN BST ARIA Fractions Treated 7 ARIA Prescribed Dose Per Fraction (cGy) 200 ARIA Prescribed Total Dose (cGy) 1,400 ARIA 03/12/2025 9:54 AM CDT us Not In File Miscellaneous RADIATION ONCOLOGY ORD ERABLES Final Result SAM * (ABNORMAL) Urinalysis reflex to microscopic and culture Urine (03/07/2025 3:30 PM CDT) Color, ur Straw Yellow Clarity, ur Clear Clear [facility] Specific gravity, ur 1.012 1.003 - 1.030 [facility] pH, urine 6.0 [facility] Comment: Interpretive Data U rine pH is affected by diet, medications, systemic acid-base disturbances, and renal tubular function. pH may affect urinary stone formation. For example, urine pH below 6.0 may help reduce the tendency for calcium phosphate stones and pH greater than 6.0 may reduce the tendency for uric acid stone formation. Source: [facility] Current Interpretive Data was last revised on 2017 Protein, ur ql Negative Negative [facility] Glucose, ur ql Trace(A) Negative [facility] Ketones, ur Negative Negative [facility] Bilirubin, ur Negative Negative [facility] Blood, ur Negative Negative [facility] Urobilinogen, ur <2.0 <2.0 mg/dL [facility] Nitrite, ur Negative Negative [facility] Leukocyte esterase, ur 2+(A) [facility] UA reflex comment Reflex to microscopic UA will be performed. [facility] Urine 03/07/2025 3:30 PM CDT 03/07/2025 3:47 PM CDT us Kervin Gonsales MD LAB MICROBIOLOGY - GENERA L ORDERABLES Final Result [facility] Department [place] [address] * (ABNORMAL) Urinalysis, microscopic only (03/07/2025 3:30 PM CDT) WBC, ur 6-10(A) 0 - 5 /HPF RBC, ur 3-5(A) 0 - 2 /HPF [facility] Epithelial cells, squamous, ur 1-5 0 - 5 /HPF [facility] Epithelial cells, transitional, ur 1-5 0 - 0 /HPF [facility] Bacteria, ur Trace(A) [facility] Mucous, ur Present(A) [facility] Culture Reflex Comment Reflex conditions for urine culture (WBC >10) not met. [facility] Urine 03/07/2025 3:30 PM CDT 03/07/2025 3:47 PM CDT Kervin Gonsales MD LAB URINE ORDERABLES Lauren palmer Result [facility] Department [place] [address] * eGFR (03/07/2025 12:50 PM CDT) eGFR 77 >=60 mL/min/1. 73 m2 Comment: Interpretive Data Reference Interval Normal >/= 90 mL/min/1.73m2 Mildly decreased* 60 - 89 mL/min/1.73m2 Mildly to moderately decreased 45 - 59 mL/min/1.73m2 Moderately to severely decreased 30 - 44 mL/min/1.73m2 Severely decreased 15 - 29 mL/min/1.73m2 Kidney Failure < 15 mL/min/1.73m2 *Relative to young adult level Estimated glomerular filtration rate is determined by the 2020 CKD-EPI equation recommended by the National Kidney Foundation (A Unifying Approach to GFR Estimation: Recommendations of the NKF-ASK Task Force on Reassessing the Inclusion of Race in Diagnosing Kidney Disease, JASN 2020). The CKD-EPI equation should not be used for patients with unstable renal function and has not been validated in children and those over 70. Current interpretive data was last reviewed 2021. Blood 03/07/2025 12:5 0 PM CDT 03/07/2025 1:01 PM CDT Kervin Gonsales MD LAB BLOOD ORDERABLES Lauren estela Result [facility] Department [place] [address] * (ABNORMAL) Differential, auto (03/07/2025 12:50 PM CDT) Neutrophil abs 7.56(H) 1.50 - 6.50 K/cumm Comment:Testing performed by : [facility], [address] [place] [address] Lymphocyte abs 1.06 0.80 - 3.30 K/cumm [facility] Comment:Testing performed by : [facility], [address] [place], [place] [phone] Monocyte abs 0.38 0.20 - 0.80 K/cumm [facility] Comment:Testing performed by : [facility], [address] [place], [place] [phone] Eosinophil abs 0.02 0.00 - 0.50 K/cumm [facility] Comment:Testing performed by : [facility], [address] [place] [phone] Basophil abs 0.04 0.00 - 0.10 K/cumm [facility] Comment:Testing performed by : [facility], [address] [place] [address] Neutrophil pct 83.5 % [facility] Comment: Interpretive Data Percent cell count reference ranges are not reported, since discordance with absolute values may lead to misinterpretation of CBC data. Current Interpretive Data was last revised on 2017. Testing performed by: [facility], [address] [place], [place] [phone] Lymphocyte pct 11.7 % [facility] Comment: Interpretive Data Percent cell count reference ranges are not reported, since discordance with absolute values may lead to misinterpretation of CBC data. Current Interpretive Data was last revised on 2017. Testing performed by: [facility], [address] [place] [phone] Monocyte pct 4.2 % [facility] Comment: Interpretive Data Percent cell count reference ranges are not reported, since discordance with absolute values may lead to misinterpretation of CBC data. Current Interpretive Data was last revised on 2017. Testing performed by: [facility], [address] [place], [place] [phone] Eosinophil pct 0.2 % [facility] Comment: Interpretive Data Percent cell count reference ranges are not reported, since discordance with absolute values may lead to misinterpretation of CBC data. Current Interpretive Data was last revised on 2017. Testing performed by: [facility], [address] [place], [place] [phone] Basophil pct 0.4 % [facility] Comment: Interpretive Data Percent cell count reference ranges are not reported, since discordance with absolute values may lead to misinterpretation of CBC data. Current Interpretive Data was last revised on 2017. Testing performed by: [facility], [address] [place] [phone] Blood 03/07/2025 12:5 0 PM CDT 03/07/2025 12:59 PM CDT Kervin Gonsales MD LAB BLOOD ORDERABLES Lauren l Result Performing Organization Address City/[facility]/ZIP Co de Phone Number [facility] Department [place] [address] * Thyroid Function [place] (03/07/2025 12:50 PM CDT) TSH 0.95 0.30 - 4.20 mcIUnit/mL Blood 03/07/2025 12:5 0 PM CDT 03/07/2025 1:01 PM CDT Kervin Gonsales MD LAB BLOOD ORDERABLES Lauren l Result [facility] Department [place] [address] * CBC with auto differential (03/07/2025 12:50 PM CDT) WBC 9.05 3.80 - 9.90 K/cumm Comment:Testing performed by : [facility], [address] [place] [address] Hgb 14.2 11.9 - 15.5 g/dL [facility] Comment:Testing performed by : [facility], [address] [place] [address] Hct 42.7 35.6 - 45.5 % [facility] Comment:Testing performed by : [facility], [address] [place] [address] Plt 347 150 - 400 K/cumm [facility] Comment:Testing performed by : [facility], [address] [place] [address] MPV 7.4 6.8 - 10.4 fL [facility] Comment:Testing performed by : [facility], [address] [place] [address] RBC 4.48 3.90 - 5.20 M/cumm [facility] Comment:Testing performed by : [facility], [address] [place] [address] MCV 95.2 81.3 - 96.4 fL [facility] Comment:Testing performed by : [facility], [address] [place] [address] MCH 31.8 27.1 - 33.3 pg [facility] Comment:Testing performed by : [facility], [address] [place] [address] MCHC 33.3 32.3 - 35.7 g/dL [facility] Comment:Testing performed by : [facility], [address] [place] [address] RDW CV 14.8 11.1 - 14.9 % [facility] Comment:Testing performed by : [facility], [address] [place] [address] NRBC abs 0.00 0.00 - 0.01 K/cumm [facility] Comment:Testing performed by : [facility], [facility] [place] [address] Blood 03/07/2025 12:5 0 PM CDT 03/07/2025 12:59 PM CDT Kervin Gonsales MD LAB BLOOD ORDERABLES Lauren l Result [facility] Department [place] [address] * Comprehensive metabolic panel (03/07/2025 12:50 PM CDT) Sodium 139 135 - 145 mmol/L Potassium, pl 4.1 3.3 - 4.9 mmol/L [facility] Chloride 102 97 - 110 mmol/L [facility] CO2 28 22 - 32 mmol/L [facility] Anion gap 9 2 - 15 mmol/L [facility] BUN 14 6 - 25 mg/dL [facility] Creatinine 0.82 0.60 - 1.10 mg/dL [facility] Glucose 92 70 - 199 mg/dL [facility] Comment: Interpretive Data Fasting glucose >/= 126 mg/dl is diagnostic for diabetes. Fasting is defined as no caloric intake for at least 8 hours. Fasting glucose between 100 mg/dl to 125 mg/dl is diagnostic of prediabetes. In a patient with classic symptoms of hyperglycemia or hyperglycemic crisis, a random glucose >/= 200 mg/dl is diagnostic for diabetes. In the absence of unequivocal hyperglycemia, results should be confirmed by repeat testing. The classification and Diagnosis of Diabetes Diabetes Care 202; 46: S19-S40. Current interpretive data was last revised 2022. Calcium 9.4 8.5 - 10.3 mg/dL [facility] Bilirubin, total 0.4 0.1 - 1.2 mg/dL [facility] Protein, pl 6.8 6.5 - 8.5 g/dL [facility] Albumin 4.1 3.5 - 5.0 g/dL [facility] Alk phos 60 40 - 130 Units/L [facility] ALT 43 7 - 45 Units/L [facility] AST 21 10 - 45 Units/L [facility] Blood 03/07/2025 12:5 0 PM CDT 03/07/2025 1:01 PM CDT us Kervin Gonsales MD LAB BLOOD ORDERABLES Lauren l Result [facility] [place] [address] * eGFR (02/28/2025 12:34 PM CDT) eGFR 81 >=60 mL/min/1. 73 m2 Comment: Interpretive Data Reference Interval Normal >/= 90 mL/min/1.73m2 Mildly decreased* 60 - 89 mL/min/1.73m2 Mildly to moderately decreased 45 - 59 mL/min/1.73m2 Moderately to severely decreased 30 - 44 mL/min/1.73m2 Severely decreased 15 - 29 mL/min/1.73m2 Kidney Failure < 15 mL/min/1.73m2 *Relative to young adult level Estimated glomerular filtration rate is determined by the 2020 CKD-EPI equation recommended by the National Kidney Foundation (A Unifying Approach to GFR Estimation: Recommendations of the NKF-ASK Task Force on Reassessing the Inclusion of Race in Diagnosing Kidney Disease, JASN 1). The CKD-EPI equation should not be used for patients with unstable renal function and has not been validated in children and those over 70. Current interpretive data was last reviewed 2021. Blood 02/28/2025 12:3 4 PM CDT 02/28/2025 12:36 PM CDT us Noé Sarmiento MD PhD LAB BLOOD ORDERABLES Fin al Result [facility] Department [place] [address] * Comprehensive metabolic panel (02/28/2025 12:34 PM CDT) Sodium 139 135 - 145 mmol/L Potassium, pl 4.1 3.3 - 4.9 mmol/L [facility] Chloride 102 97 - 110 mmol/L [facility] CO2 28 22 - 32 mmol/L [facility] Anion gap 9 2 - 15 mmol/L [facility] BUN 16 6 - 25 mg/dL [facility] Creatinine 0.79 0.60 - 1.10 mg/dL [facility] Glucose 96 70 - 199 mg/dL [facility] Comment: Interpretive Data Fasting glucose >/= 126 mg/dl is diagnostic for diabetes. Fasting is defined as no caloric intake for at least 8 hours. Fasting glucose between 100 mg/dl to 125 mg/dl is diagnostic of prediabetes. In a patient with classic symptoms of hyperglycemia or hyperglycemic crisis, a random glucose >/= 200 mg/dl is diagnostic for diabetes. In the absence of unequivocal hyperglycemia, results should be confirmed by repeat testing. The classification and Diagnosis of Diabetes Diabetes Care 2021; 46: S19-S40. Current interpretive data was last revised 2022. Calcium 9.9 8.5 - 10.3 mg/dL [facility] Bilirubin, total 0.4 0.1 - 1.2 mg/dL [facility] Protein, pl 7.0 6.5 - 8.5 g/dL [facility] Albumin 4.2 3.5 - 5.0 g/dL [facility] Alk phos 64 40 - 130 Units/L [facility] ALT 36 7 - 45 Units/L [facility] AST 17 10 - 45 Units/L [facility] Blood 02/28/2025 12:3 4 PM CDT 02/28/2025 12:36 PM CDT us Noé Sarmiento MD PhD LAB BLOOD ORDERABLES Fin al Result [facility] Department [place] [address] * Screening Mammogram Bilateral W [place] (01/12/2024 3:42 PM CDT) Anatomical Region Laterality Modality Breast Bilateral Mammography 01/12/2024 4:07 PM CDT Impressions 01/12/2024 4:07 PM CDT There is no mammographic evidence of malignancy. A 1 year screening mammogram is recommended. BI-RADS: 1 - Negative. The patient has been or will be contacted. The patient will be entered into a reminder system with a target due date of 1 year for her next mammogram. Electronically signed by: Candi Taylor M.D. Narrative 01/12/2024 4:07 PM CDT EXAMINATION: SCREENING MAMMOGRAM BILATERAL W ZURDO ORDERING HEALTHCARE PROVIDER: SELF SCREENING MAMMOGRAM HISTORY: Routine screening mammography. COMPARISON: 10/07/2022, 10/05/2021, 08/26/2020, 07/11/2019 TECHNIQUE: CC and MLO views of the bilateral breasts were obtained with digital technique using breast tomosynthesis with C view. Computer aided detection was utilized. FINDINGS: DENSITY: The tissue of the bilateral breasts is heterogeneously dense, which may obscure small masses. BREASTS: There are no suspicious masses, suspicious calcifications, or other suspicious findings in either breast. There has been no suspicious interval change. us Self Screening Mammogram IMG MAMMO PROCEDURES Fi nal Result * Dexa Axial Skeleton Bone Density 1 or 2 Site (12/13/2022 10:16 AM CDT) Anatomical Region Laterality Modality Body N/A Other 12/13/2022 9:31 PM CDT Narrative 12/13/2022 9:32 PM CDT EXAM DESCRIPTION: DEXA AXIAL SKELETON BONE DENSITY 1 OR MORE SITES REASON FOR STUDY: 67 y/o year old F with given history of screening. 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 LEFT HIP: Total BMD is 0.620 g/cm2 T-score is -2.6 Dissimilar scan types or analysis methods precludes assessment for calculating a significant change. Femoral neck BMD is 0.49 g/cm2 T-score is -3.2 FRAX: FRAX not reported due to T-scores of hip, femoral neck and/or spine being at or below -2.5 (Osteoporosis). IMPRESSION: Osteoporosis. REFERENCE: Bone mineral density: Normal (T-score above or = -1.0) Low bone mass (T-score between -1.0 and -2.5) replaces the previously used term osteopenia Osteoporosis (T-score = or below -2.5) Medical evaluation for secondary causes of low bone mineral density may be appropriate. FRAX is a World Health Organization validated fracture risk assessment tool that calculates a person's 10 year probability of a major osteoporosis related fracture and hip fracture. According to the National Osteoporosis Foundation guidelines, postmenopausal women and men age 50 or older with low bone mass and a 10 year probability of a major osteoporosis related fracture = or greater than 20% or a 10 year probability of a hip fracture = or greater than 3% should be considered for treatment. For further information, including treatment recommendations, please refer to the 2013 ISCD Official Positions (http://www.iscd.org) and the NOF's Clinician's Guide to Prevention and Treatment of Osteoporosis (http://www.nof.org/professionals/clinical-guidelines) THIS IS AN ELECTRONICALLY VERIFIED FINAL REPORT 12/13/2022 9:32 PM - Electronically signed by Otoniel Bermudez M.D. MF: MONIQUE Report ID: [id number] Reading Location: [place] [address] Procedure Note Otoniel Bermudez MD - 12/13/2022 EXAM DESCRIPTION: DEXA AXIAL SKELETON BONE DENSITY 1 OR MORE SITES REASON FOR STUDY: 67 y/o year old F with given history of screening. 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 LEFT HIP: Total BMD is 0.620 g/cm2 T-score is -2.6 Dissimilar scan types or analysis methods precludes assessment for calculating a significant change. Femoral neck BMD is 0.49 g/cm2 T-score is -3.2 FRAX: FRAX not reported due to T-scores of hip, femoral neck and/or spine beingat or below -2.5 (Osteoporosis). IMPRESSION: Osteoporosis. REFERENCE: Bone mineral density: Normal (T-score above or = -1.0) Low bone mass (T-score between -1.0 and -2.5) replaces thepreviously used term osteopenia Osteoporosis (T-score = or below -2.5) Medical evaluation for secondary causes of low bone mineral density may be appropriate. FRAX is a World Health Organization validated fracture risk assessmenttool that calculates a person's 10 year probability of a major osteoporosisrelated fracture and hip fracture. According to the National OsteoporosisFoundation guidelines, postmenopausal women and men age 50 or older with low bonemass and a 10 year probability of a major osteoporosis related fracture = or greater than 20% or a 10 year probability of a hip fracture = or greaterthan 3% should be considered for treatment. For further information, including treatment recommendations, please referto the 2013 ISCD Official Positions (http://www.iscd.org) and the NOF's Clinician's Guide to Prevention and Treatment of Osteoporosis (http://www.nof.org/professionals/clinical-guidelines) THIS IS AN ELECTRONICALLY VERIFIED FINAL REPORT 12/13/2022 9:32 PM - Electronically signed by Otoniel Bermudez M.D. MF: MONIQUE Report ID: [id number] Reading Location: [id number] Becky Toussaint COST CLERK IMG DXA PROCEDURES Final Resul t * Hepatitis C antibody (08/19/2017 11:18 AM STATISTICIAN THEORETICAL) Pathologist [facility] Hep C Ab Nonreactive Nonreactive [facility] Comment: Interpretive Data Positive and greyzone results should be confirmed by a molecular method. If positive or greyzone, a second separately collected sample should be submitted for Hepatitis C Virus RNA. Detection and Quantitation by Real-Time Reverse Video Production Specialist-PCR.Current Interpretive data was last revised on 2017. Blood specimen (specimen) 08/19/2017 11:18 AM STATISTICIAN THEORETICAL 08/19/2017 1:07 PM STATISTICIAN THEORETICAL Narrative NANCI RICHELLE - 08/19/2017 2:01 PM STATISTICIAN THEORETICAL Otoniel Gonzales MD LAB MICROBIOLOGY - GENERAL OR DERABLES Edited Result - Final NANIC [place] [facility] [place] [address] from Last 3 Months or Most Recently Relevant to Health Maintenance Insurance MEDICARE [facility] MEDICARE [facility] MEDICARE AD[facility]ANT[facility] MEDICARE AD[facility]ANT[facility] MEDICARE ADVANTAGE [facility] MEDICARE ADVANTAGE * Guarantor: [id number],RESEARCH Account Type Relation to Patient Date of Phone Billing Address Research * Guarantor: P2 TEMODAR+RT +/- NIVO IN MGMT+ GBM,RESEARCH Account Type Relation to Patient Date of Phone Billing Address Research Advance Directives For more information, please contact: [phone] * Full Code (Latest Code Status on File) Date Activated Date Inactivated Comments 02/08/2025 3:07 AM 02/15/2025 6:34 PM * Full Code Date Activated Date Inactivated Comments 05/06/2024 11:08 PM 2024 8:38 PM * Full Code Date Activated Date Inactivated Comments 02/21/2021 10:09 PM 02/24/2021 6:26 PM Care Teams Engineering Analyst Relationship Specialty Start Date End Date Beatrice Tesfaye NP [address] [place] [address] PCP - General Nurse Practitioner 12/21/24 Mylene Ervin PA [address] [place] [address] 04/07/17 Kervin Gonsales MD [address] [place] [address] Medical Oncology 08/18/17 Lyle Renner MD [address] [place] [address] Referring Physician Neurosurgery 02/28/18 Ashley Sullivan MD [address], [place] [address] Consulting Physician Radiation Oncology 02/28/18 Kervin Gonsales MD [address], [place] [address] Medical Oncologist/Content Writer Medical Oncology 05/11/18 Marvin Gonzales MD PhD [address] DEPT RADIATION ONCOLOGY, [place] [address] Radiation Oncologist Radiation Oncology 01/30/25
--- OUTSIDE RECORDS SUMMARY | 2025-05-28 10:47 | XMS_ITS | Patient Health Record ---
Author Organization [facility] Address [address] [place] [id number] Care Team Providers Care Reclaimer Name Role Phone DR. YG VARGAS Primary Care Provider [phone] PRASANTH PARRA Unavailable [phone] Allergies Allergen (clinical drug ingredient) Drug/Non Drug Allergy documented on EMR Reaction Allergy Type Onset Date Status Latex latex (uncoded) cough Allergy Acti ve amoxicillin Amoxicillin nausea and vomiting Drug Allergy Active codeine Codeine hallucinations Drug Allergy Ac tive erythromycin Erythromycin nausea and vomiting Drug Allergy Active hydrocodone HYDROcodone nausea and vomiting Drug Allergy Active Reason For Referral Reason OT TO EVALUATE AND T REAT Diagnosis 1 Generalized weakness (R53.1) Referral Organization [facility] Referring Provider First Name PRASANTH Referring Provider Last Name AIDA Referring Provider Speciality [facility] bob Referred Organization [facility] Referred Address [address] [place] [address],[facility], Referred Provider Specialty Occupational Therapy General Notes Any Calvert 025 10:17:12 AM CDT >empowerme wellness Referral Priority Routine Reason PT TO EVALUATE AND T REAT Diagnosis 1 Generalized weakness (R53.1) Referral Organization [facility] Referring Provider First Name PRASANTH Referring Provider Last Name AIDA Referring Provider Speciality Family Med iciirwin Referred Organization [facility] Referred Address [address] [place] [address],[facility],[place] Referred Provider Specialty Physical The rapist General Notes Any Calvert 025 10:16:53 AM CDT >empowerme wellness Referral Priority Routine Reason ST TO EVALUATE AND T REAT Diagnosis 1 Dysphagia, oral phas e (R13.11) Referral Organization [facility] Referring Provider First Name PRASANTH Referring Provider Last Name AIDA Referring Provider Speciality Family Med bob Referred Organization [facility] Referred Address [address] [place], [place],[address],[place] Referred Provider Specialty Speech and l grzegorz therapist General Notes Any Calvert 025 10:16:11 AM CDT >Empowerme wellness Referral Priority Routine Medications Medication SIG (Take, Route, Frequency, Duration) Notes Start Date End Date Status Zinc Gluconate 50 MG Tablet 1 tablet wit h food Orally Once a day Active Zonisamide 50 MG Capsule 1 capsule Orall y twice a day Active Ibandronate Sodium 150 MG Tablet 1 tablet 60 minutes before the first food, beverage or medicine of the day with plain water Orally monthly Active Magnesium Oxide (Antacid) 500 MG Capsule 1 capsule with food Orally Once a day Active Polyethylene Glycol 3350 Powder as directed daily As needed Active Senna 8.6 MG Capsule 1 tablet Orally twi ce a day Active Ciclopirox 0.77 % Gel 1 application Exte rnally daily Active Heparin Lock Flush 100 UNIT/ML Solution 1 mL Intravenous every 12 hours Active Vitamin D3 25 MCG (1000 UT) Tablet 1 tablet Orally Once a day Active oxyCODONE HCl 5 MG Tablet 1 tablet as ne eded Orally every 4 hours Active Ascorbic Acid 1000 MG Tablet 1 tablet Orally Once a day Active Docusate Sodium 100 MG Capsule 1 capsule Orally twice a day Active Flonase 50 MCG/DOSE Inhaler 1 spray in each nostril Nasally Twice a day As needed Active Famotidine 20 MG Tablet 1 tablet Orally twice a day Active amLODIPine Besylate 5 MG Tablet 1 tablet Orally Once a day Active valACYclovir HCl 500 MG Tablet 1 tablet Orally Once a day Active Acetaminophen 500 MG Capsule 2 capsule as needed Orally every 6 hrs Active Social History Tobacco Use: Social History Observation Description Date Details (start date - stop date) Former Smoker NA - NA Social History Drug/Alcohol: Social Info Question Answer Notes Drugs Have you used drugs other than those for medical reasons in the past 12 months? No AUDIT-C (Standard) Did you have a drink containing alcohol in the past year? 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) Active confirmed Problem Essential hypertension (46951812) Essential (primary) hypertension (I10) Active confirmed Problem Oral phase dysphagia (040855858) Dysphagia, oral phase (R13.11) Active confirmed Problem Expressive aphasia (437430645) Expressive aphasia (R47.01) Active confirmed Problem Malignant neoplasm of brain (025001930) Malignant neoplasm of brain, unspecified location (C71.9) Active confirmed Encounters Encounter Location Date Provider Diagnosis [address] [address] 2025 PRASANTH PARRA Malignant neoplasm o f brain, unspecified location C71.9 ; Expressive aphasia R47.01 ; Localization-related (focal) (partial) idiopathic epilepsy 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 Patient is A&Ox3. She is able to make her needs known. Continue to monitor closely. 2025 Malignant neoplasm of brain, unspecified location (ICD-10 - C71.9) Patient following with oncology and neurosurgery. Was previously on immunotherapy, but it is currently on hold due to side effects. Continue to follow as advised. 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 Patient denies any seizure-like activity. Continue current treatment plan and monitoring. 2025 Essential (primary) hypertension (ICD-10 - I10) No complaints of adverse signs or symptoms. Continue current treatment plan and monitoring. Stable on current medication regimen. 2025 Drug induced constipation (ICD-10 - K59.03) No concerns at this time. Well managed on current medication regimen. Continue current treatment plan and monitoring. 2025 Generalized weakness (ICD-10 - R53.1) Continue current treatment plan and monitoring. 2025 Advanced care planning/certified travel counselor ing discussion (ICD-10 - Z71.89) I spent 30 minutes in [id number] advance care planning with patient and son. Patient has decision-making capacity. We discussed patient's values regarding quality of life, code status, and preferences regarding hospitalization and ventilator support. POLST form was completed. This advance care planning discussion was voluntary and conducted by a qualified health professional. Patient and son demonstrated understanding and agreed to participate. 2025 Other Patient and family did not have a medication list for today's visit. Son reports he will provide a list and supply it to the facility to get to provider. Continue current treatment plan.Staff to continue to monitor and report any changes.Patient education provided and questions/concerns addressed.Follow up in three months unless necessary sooner. Plan Of Treatment No Information Insurance Providers Payer Name Payer Address Payer Phone Subscriber Number Group Number Insured Name Patient Relationship to Insured Coverage Start Date Coverage End Date [facility] [address] [address] [place] [phone] [id number] Early-Ext on, Sarina Self - patient is the insured Medical (General) History Medical History History ICD Code acid reflux disease brain tumor cancer glioblastoma h/o seasonal allergies herpes genitalis in woman history of radiation therapy hearing loss hypertension left frontal glioblastoma mu ltiforme, EGFR amplified, MGMT promoter not methylated motion sickness personal history of other specified cond itions tinnitus Surgical History Surgery Date(Month/Year) craniotomy for tumor cyst removal tonsillectomy tubal ligation
--- OUTSIDE RECORDS SUMMARY | 2025-05-28 10:47 | XMS_ITS | Clinical Summary ---
Author Organization [facility] Address [address] [place] [address] Phone Care Team Providers Care Mold Tooler Name Role Phone Caryl Shannon MD Primary Care Provider [phone] Allergies Active Allergy Reactions Criticality Noted Date Comments Amoxicillin Nausea 07/12/2020 Codeine Hallucinations 07/12/2020 Hydrocodone Hallucinations 07/12/2020 Latex Itching 04/17/2023 Oxycodone Hallucinations 07/12/2020 Medications albuterol 108 (90 Base) MCG/ACT Aerosol Solution take 2 Puffs by inhalation every 6 hours as needed for Cough. 6.7 g 2 Active traMADol (ULTRAM) 50 MG TabletIndicatio ns:Multiple rib fractures Take 1-2 Tablets by mouth every 6 hours as needed for Mild or more severe pain. 20 Tablet 3 Active Social History Tobacco Use Types Packs/Day Years Used Date Smoking Tobacco: Former Smokeless Tobacco: Never Alcohol Use Standard Drinks/Week Comments Yes 0 (1 standard drink = 0.6 oz pur e alcohol) Comments No Sex and Gender Information Value Date Recorded Sex Assigned at Not on file Legal Sex Female 8:50 PM CDT Gender Identity Not on file Sexual Orientation Not on file Last Filed Vital Signs Vital Sign Reading Time Taken Comments Blood Pressure 135/69 04/17/2023 1:32 PM CDT Pulse 78 04/17/2023 1:32 PM CDT Temperature 35.9 C (96.7 F) 04/17/2023 1:32 PM CDT Respiratory Rate 17 04/17/2023 1:32 PM CDT Oxygen Saturation 100% 04/17/2023 1:32 PM CDT Inhaled Oxygen Concentration - - Weight 57.1 kg (125 lb 14.1 oz) 04/17/2023 1:32 PM CDT Height 157.5 cm (5' 2) 04/17/2023 1:32 PM CDT Body Mass Index 23.02 04/17/2023 1:32 PM CDT Plan of Treatment Health Maintenance Due Date Last Done Comments DEXA Bone Density 1955 Hepatitis C Virus (HCV) Screening 1955 Mammogram 1955 Cologuard 2000 Colonoscopy 2000 Colorectal Cancer Screening 2000 Immunochemical Fecal Occult Blood 2000 Medicare Initial AWV [id number] 08/15/2022 Influenza Immunization (#1) 04/15/202505/15, 05/26/2023, 05/27/2022, Additional history exists SARS-COV-2 Immunization ( season) 2025 11/21/2020, 10/24/2020 Respiratory Syncytial Virus (RSV) Immunization (Adult) (1 - 1-dose 75+ series) 2030 DTaP/Tdap/Td Immunization Discontinued 04/02/2014, 08/2002 TdaP Immunization Completed 04/02/2014, 08/15/2002 Pneumococcal Immunization (50+ years) Completed 04/05/2022 Pneumococcal Immunization Combined Discontinued 04/05/2022 Zoster Immunization Completed 12/11/2022, Hepatitis B Immunization Aged Out No longer eligible based on patient's age to complete this topic Human Papillomavirus (HPV) Immunization Aged Out No longer eligible based on patient's age to complete this topic Meningococcal Immunization (ACWY) Aged Out No longer eligible based on patient's age to complete this topic Rotavirus Immunization Aged Out No lo nger eligible based on patient's age to complete this topic Insurance MEDICARE [facility] Care Teams Mold Tooler Relationship Specialty Start Date End Date Caryl Shannon MD [address] [place] [address] PCP - General Internal Medicine 09/05/21
--- OUTSIDE RECORDS SUMMARY | 2025-05-28 10:47 | XMS_ITS | Encounter Summary ---
Author Organization [facility] Address [address] [place] [address] Care Team Providers Care Certified Neurodiagnostic Technologist Name Role Phone Mylene Ervin Unavailable [phone] ChKervin easley MD Unavailable Lyle Renner MD Unavailable [phone] Ashley Sullivan MD Unavailable Kervin Gonsales MD Unavailable Beatrice Tesfaye NP Primary Care Provider Mayuri Rose RN Unavailable [phone] Marvin Gonzales MD PhD Unavailable Encounter Details Date Type Department Care Team (Late st Contact Info) Description 04/08/2025 Results Follow-Up [facility] [place] [address] [place] [address] Rachael Esquivel, EDSON [address] [place] [address] Urine culture Urine, clean voided Social History Tobacco Use Types Packs/Day Years Used Date Smoking Tobacco: Former Cigarettes Q uit: 08/21/2013 Passive Smoke Exposure: Past Smokeless Tobacco: Never Alcohol Use Standard Drinks/Week Comments Not Currently 0 (1 standard drink = 0.6 oz pur e alcohol) [facility] Utilities Answer Date Recorded In the past 12 [...] often do you attend chur ch or uatsdin services? More than 4 times per year 05/08/2024 Do you belong to any clubs o r organizations such as gnosticist groups, unions, fraternal or athletic groups, or [...] any time in the past 12 m [facility], were you homeless or living in a penitentiary (including now)? No 05/08/2024 Personal Safety Answer Date Recorded Have you ever been in or are you currently in a harmful physical or emotional relationship or is someone making you feel afraid or unsafe? 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 * Result Encounter Note - Rachael Esquivel NP - 04/08/2025 7:55 AM CDT Please contact patient and inform her that the Urine sample was contaminated. If she is still having symptoms, she may return to provide a new sample. documented in this encounter Plan of Treatment Not on file documented as of this encounter Visit Diagnoses Not on filedocumented in this encounter Care Teams Certified Neurodiagnostic Technologist Relationship Specialty Start Date End Date Beatrice Tesfaye NP [address] [place] [address] PCP - General Nurse Practitioner 12/21/24 Mylene Ervin PA [address] [place] [address] 04/07/17 Kervin Gonsales MD [address] [place] [address] Medical Oncology 08/18/17 Lyle Renner MD [address] [place], [place] [id number] Referring Physician Neurosurgery 02/28/18 Ashley Sullivan MD [address] [place] [address] Consulting Physician Radiation Oncology 02/28/18 Kervin Gonsales MD [address] [facility] [address], [place] [address] Medical Oncologist/Stenotype Machine Operator Medical Oncology 05/11/18 Mayuri Rose, ORESTES Nurse Navigator 01/24/25 05/23/25 Marvin Gonzales MD PhD [address] [facility], [place] [address] Radiation Oncologist Radiation Oncology 01/30/25 documented as of this encounter
[2025-05-28 12:43] LABS: Hematocrit 44.1 % (37.0-47.0); Hemoglobin 14.5 g/dL (12.0-15.0); Immature Granulocyte Percent A 0.7 % (0-0.5); Lymphocytes Absolute Auto 1.31 K/mm3 (0.9-3.2); Mean Corpuscular HGB Conc 32.9 g/dl (32-36); Mean Corpuscular Hemoglobin 31.2 pg (26-34); Mean Corpuscular Volume 94.8 fl (80-100); Nucleated Red Blood Cells Absolute Auto 0.000 K/mm3 (0.0-0.012); Nucleated Red Blood Cells Perc 0.0 % (0.0-0.2); Platelet Count Result 252 k/mm3 (150-375); Red Blood Count 4.65 M/mm3 (4.2-5.4); White Blood Count 10.9 K/mm3 (4.5-10.0)
[2025-05-28 12:48] LABS: Add Urine Microscopic? YES; Appearance Urine Clear (Clear); Glucose Urine UA Negative (Negative); Leukocyte Esterase Ur 2+ LEU/UL (Negative); Nitrate Urine Negative (Negative); Non Pathogenic Casts 0-2; Specific Grav Ur 1.011 (1.001-1.035)
[2025-05-28 13:03] LABS: Alanine Aminotransferase 32 U/L (6-35); Albumin Level 3.4 g/dL (3.5-5.1); Alkaline Phosphatase 105 U/L (38-126); Anion Gap 3 mmol/L (4-12); Aspartate Amino Transferase 31 U/L (14-36); Bilirubin,Total 0.6 mg/dL (0.2-1.3); Blood Urea Nitrogen 13 mg/dL (7-17); Calcium 8.3 mg/dL (8.4-10.2); Carbon Dioxide 29 mmol/L (22-30); Chloride 101 mmol/L (98-107); Estimated Glomerular Filt Rate > 60; Glucose 91 mg/dL (65-110); Potassium 3.6 mmol/L (3.4-5.0); Sodium 133 mmol/L (137-145); Total Protein 6.2 g/dL (6.3-8.2)
[2025-05-28] MEDS: CEPHALEXIN 500 MG CAPSULE PO (13:27)
== END 2025-05-28 13:53 ==
PROVIDERS: Emergency Provider Physician Assistant
DX: S05.11XA Contusion of eyeball and orbital tissues, right eye, initial encounter (principal); S60.812A Abrasion of left wrist, initial encounter; N39.0 Urinary tract infection, site not specified; I10 Essential (primary) hypertension; R47.01 Aphasia; M47.812 Spondylosis without myelopathy or radiculopathy, cervical region; W19.XXXA Unspecified fall, initial encounter
CPT/HCPCS: 36415; 70450; 70486; 71045; 72125; 72170; 73110; 80053; 81001; 85025; 87086; 99284; A9270